=== PATIENT | female | born 1995 | race African-American/Black ===

== ENCOUNTER 2017-01-29 21:10 | Emergency (ER) | payer MEDICAID ==
[2017-01-29] MEDS ORDERED: HYDROMORPHONE HCL INJ/PF 2 MG/ML AMPULE IV PRN (22:16)
[2017-01-29] MEDS ORDERED: RINGERS SOLUTION,LACTATED 1,000 ML IV ONE (22:17)
[2017-01-29] MEDS ORDERED: PROCHLORPERAZINE EDISYLATE INJ 10 MG/2 ML VIAL IV ONE (22:58)
[2017-01-29] MEDS ORDERED: DIPHENHYDRAMINE HCL 50 MG/ML VIAL IV ONE (22:58)
[2017-01-29] MEDS ORDERED: KETOROLAC TROMETHAMINE INJ/PF 30 MG/1 ML SDV IV ONE (22:58)
--- NOTE | 2017-01-29 23:04 | ER Document Report ---
ED General - General Chief Complaint: Sickle Cell Crisis Stated Complaint: HEADACHE Time Seen by Provider: 01/29/17 22:15 Notes: Patient is a 21-year-old female past medical history of sickle cell type C who presents with a typical sickle cell crisis. She does describe diffuse body aches and pains which she states is standard for her sickle cell crises. She does not tried anything for her pain at home. Nothing has improved or worsened her symptoms. She does not have a local doctor slide attendant secondary to lack of medical insurance. She also complains of a bitemporal, throbbing, severe headache that has been gradual in onset and progressively worsening since it started. States lights, sounds, smells worsen the headache. Nothing improves the headache. States she has a history of similar migraine-type headaches in the past and that this is not worse than prior headaches she had in the past. She denies any associated weakness, numbness, neck pain, fever or confusion. Past Medical History - General Information source: Patient - Social History Smoking Status: Never Smoker Frequency of alcohol use: None Drug Abuse: None Lives with: Spouse/Significant other Family History: Reviewed & Not Pertinent Review of Systems - Review of Systems Notes: Constitutional: Negative for fever. HENT: Negative for sore throat. Eyes: Negative for visual changes. Cardiovascular: Negative for chest pain. Respiratory: Negative for shortness of breath. Gastrointestinal: Negative for abdominal pain, vomiting or diarrhea. Genitourinary: Negative for dysuria. Musculoskeletal: Negative for back pain. Skin: Negative for rash. Neurological: Positive for headaches, negative for weakness or numbness. 10 point ROS negative except as marked above and in HPI. Physical Exam - Vital signs Vitals: Resp Pulse Ox 20 97 01/29/17 20:57 01/29/17 20:57 Interpretation: Normal Notes: PHYSICAL EXAMINATION: GENERAL: Appears mildly uncomfortable but in no acute distress. HEAD: Atraumatic, normocephalic. EYES: Pupils equal round and reactive to light, extraocular movements intact, sclera anicteric, conjunctiva are normal. ENT: nares patent, oropharynx clear without exudates. Moist mucous membranes. NECK: Normal range of motion, supple without lymphadenopathy LUNGS: Breath sounds clear to auscultation bilaterally and equal. No wheezes rales or rhonchi. HEART: Regular rate and rhythm without murmurs ABDOMEN: Soft, nontender, normoactive bowel sounds. No guarding, no rebound. No masses appreciated. EXTREMITIES: Normal range of motion, no pitting or edema. No cyanosis. NEUROLOGICAL: Face symmetric. Tongue protrudes midline. Extraocular motions intact. Pupils are 2 mm and equally reactive. Normal speech, normal gait. 5 out of 5 strength in both the distal and proximal upper and lower extremities bilaterally. Sensation is grossly intact throughout. Finger to nose testing normal. Pronator drift normal. PSYCH: Normal mood, normal affect. SKIN: Warm, Dry, normal turgor, no rashes or lesions noted. Course - Re-evaluation Re-evalutation: 01/29/17 23:01 Presentation of a headache that appears to be most consistent with tension versus migrainous type headache. Headache was not maximal in onset, patient has no focal neurologic deficits, no nuchal rigidity, vital signs within normal limits, no papilledema, and patient is overall well in appearance. Based on clinical history and examination I do not suspect an acute subarachnoid hemorrhage, dural venous sinus thrombosis, acute meningitis, or intercranial mass. Although patient does have a history of sickle cell anemia and I recognize that she is at elevated risk for more complex pathologies if her headache, her clinical history is very consistent with a migraine-type headache. She states that was progressively worse in onset, she has a history of similar headaches in the past, that is been worsened by lights, smells, and loud sounds. She also is complaining of her typical sickle cell crisis pain. Patient has no evidence of an aplastic crisis on labs. Vitals and history are not consistent with acute chest syndrome. Vitals have remained within normal limits here in the emergency department. 01/30/17 00:34 Patient has a complete resolution of her headache at this time. Patient's pain has been able to be controlled using IV analgesia. The patient is agreeable to discharge home at this time. At this time will discharge with return precautions and follow-up recommendations. Verbal discharge instructions given a the bedside and opportunity for questions given. Medication warnings reviewed. Patient is in agreement with this plan and has verbalized understanding of return precautions and the need for primary care follow-up in the next 24-72 hours. - Vital Signs Vital signs: Temp Pulse Resp BP Pulse Ox 15 122/80 99 01/29/17 21:12 01/29/17 21:12 01/29/17 21:12 - Laboratory Result Diagrams: 01/29/17 22:37 01/29/17 22:37 Laboratory results interpreted by me: 01/29/17 01/29/17 22:37 22:37 WBC 18.0 H Hgb 10.7 L Hct 31.0 L MCV 72 L MCH 24.9 L RDW 15.7 H Band Neutrophils % 1 L Abs Neuts (Manual) 13.5 H Retic Count (auto) 3.91 H Absolute Retic 0.168 H Chloride 108 H Discharge - Discharge Clinical Impression: Sickle cell crisis Migraine headache Qualifiers: Migraine type: unspecified Status migrainosus presence: with status migrainosus Intractability: not intractable Qualified Code(s): G43.901 - Migraine, unspecified, not intractable, with status migrainosus Condition: Good Disposition: HOME, SELF-CARE Additional Instructions: You were seen today for sickle cell pain crisis. Please follow-up with your slide attendant. Returning to the ED if you have worsening pain, fever greater than 100.4, shortness of breath, persistent vomiting, or any other symptoms that are concerning to you. You were seen today for a migraine headache. Please follow-up with your primary care doctor regarding today's ED visit. Return to emergency department immediately if you develop a headache that gets to its maximum severity within 20 minutes of onset, you pass out, you develop weakness, numbness, changes in your vision, become unable to keep any fluids down for more than 12 hours, or develop a fever greater than 100.4 degrees Fahrenheit. If you develop a similar migraine headache in the future I recommend that you immediately take 600 mg of ibuprofen and 50 mg of Benadryl and go to sleep as quickly as possible. This can often prevent your migraine headache from becoming severe. Referrals: DICK MEJIA MD [ACTIVE STAFF] - Follow up as needed
[2017-01-29 23:09] LABS: HEMOGLOBIN 10.7 g/dL (12.0-15.5); HGB HCT DIFFERENCE 1.1; MEAN CORPUSCULAR HEMOGLOBIN 24.9 pg (27.0-33.4); MEAN CORPUSCULAR HGB CONC 34.5 g/dL (32.0-36.0); MEAN CORPUSCULAR VOLUME 72 fl (80-97); RED CELL DISTRIBUTION WIDTH 15.7 % (11.5-14.0)
[2017-01-29 23:18] LABS: ANION GAP 10 (5-19); BLOOD UREA NITROGEN 10 mg/dL (7-20); CALCIUM 9.1 mg/dL (8.4-10.2); CARBON DIOXIDE 24 mmol/L (22-30); CHLORIDE 108 mmol/L (98-107); CREATININE RESULT 0.68 mg/dL (0.52-1.25); GLUCOSE 94 mg/dL (75-110); POTASSIUM 4.3 mmol/L (3.6-5.0); SODIUM 141.6 mmol/L (137-145)
[2017-01-29 23:55] LABS: BAND NEUTROPHILS % (MANUAL) 1 % (3-5); BASOPHILS % (MANUAL) 1 % (0-2); EOSINOPHILS % (MANUAL) 2 % (0-6); LYMPHOCYTES % (MANUAL) 17 % (13-45); TOTAL CELLS COUNTED 100
[2017-01-29 23:58] LABS: HYPOCHROMASIA 1+; MICROCYTOSIS 1+; POLYCHROMASIA SLIGHT; TARGET CELLS 1+; TOXIC GRANULATION SLIGHT; TOXIC VACUOLATION PRESENT
[2017-01-29 23:59] LABS: ANISOCYTOSIS SLIGHT
[2017-01-30] MEDS ORDERED: HYDROCODONE/ACETAMINOPHEN 5-325 MG 6 TAB/DSPK PO PRN (00:33)
[2017-01-30 01:00] VITALS: BP 113/59
== END 2017-01-30 00:57 | disposition home or self-care (01) ==
LOC: ER 21:10
DX: D57.219 Sickle-cell/Hb-C disease with crisis, unspecified (principal); G43.901 Migraine, unspecified, not intractable, with status migrainosus
CPT/HCPCS: 99284; 96374; 96375; 36415; 85025; 85045; 80048; J1200; J1885; J1170; J0780; J7120

== ENCOUNTER 2017-01-30 21:47 | Emergency (ER) | payer MEDICAID ==
[2017-01-30 23:21] VITALS: BP 127/87
== END 2017-01-31 03:00 | disposition left against medical advice (07) ==
LOC: ER 21:47
DX: Z53.21 Procedure and treatment not carried out due to patient leaving prior to being seen by health care provider (principal)

== ENCOUNTER 2017-03-03 23:20 | Emergency (ER) | payer MEDICAID ==
[2017-03-03 23:38] VITALS: BP 154/99
== END 2017-03-04 00:05 | disposition left against medical advice (07) ==
LOC: ER 23:20
DX: Z53.21 Procedure and treatment not carried out due to patient leaving prior to being seen by health care provider (principal)

== ENCOUNTER 2017-03-07 16:30 | Emergency (ER) | payer MEDICAID ==
[2017-03-07] MEDS ORDERED: NORMAL SALINE 1000 ML 1,000 ML IV ONE (17:39)
[2017-03-07] MEDS ORDERED: MORPHINE SULFATE 10 MG/ML INJ IV ONE (17:40)
[2017-03-07] MEDS ORDERED: LORAZEPAM INJ 2 MG/1 ML VIAL IV ONE ×2 (17:40→21:35)
[2017-03-07] MEDS ORDERED: ONDANSETRON HCL INJ/PF 4 MG/2 ML SDV IV ONE (17:40)
--- NOTE | 2017-03-07 17:42 | ER Document Report ---
ED Medical Screen (RME) - General Chief Complaint: Breathing Difficulty Stated Complaint: DIFFICULTY BREATHING Time Seen by Provider: 03/07/17 17:39 Notes: Patient with a history of sickle cell disease who is here with chest pain and tightness and difficulty breathing. She had a pain crisis a couple of days ago and came to this emergency department, but we were too busy for her to wait to be seen. Patient says she has some slight cough. Not aware of any fever. Patient of Dr. Cline. TRAVEL OUTSIDE OF THE [place] IN LAST 30 DAYS: No Past Medical History - Social History Chew tobacco use (# tins/day): No Frequency of alcohol use: None Drug Abuse: None Renal/ Medical History: Denies: Hx Peritoneal Dialysis Physical Exam - Vital signs Vitals: Temp Pulse Resp BP Pulse Ox 98.3 F 83 20 149/94 H 100 03/07/17 16:55 03/07/17 16:55 03/07/17 16:55 03/07/17 16:55 03/07/17 16:55 Course - Vital Signs Vital signs: Temp Pulse Resp BP Pulse Ox 98.3 F 83 20 149/94 H 100 03/07/17 16:55 03/07/17 16:55 03/07/17 16:55 03/07/17 16:55 03/07/17 16:55
[2017-03-07 18:23] LABS: HEMATOCRIT 34.9 % (36.0-47.0); HEMOGLOBIN 11.7 g/dL (12.0-15.5); HGB HCT DIFFERENCE 0.2; MEAN CORPUSCULAR HEMOGLOBIN 24.4 pg (27.0-33.4); MEAN CORPUSCULAR HGB CONC 33.6 g/dL (32.0-36.0); MEAN CORPUSCULAR VOLUME 73 fl (80-97); RED BLOOD COUNT 4.81 10^6/uL (3.72-5.28); RED CELL DISTRIBUTION WIDTH 15.9 % (11.5-14.0); WHITE BLOOD COUNT 14.5 10^3/uL (4.0-10.5)
[2017-03-07 18:37] LABS: BASOPHILS % (MANUAL) 1 % (0-2); EOSINOPHILS % (MANUAL) 5 % (0-6); LYMPHOCYTES % (MANUAL) 15 % (13-45); NUCLEATED RED BLOOD CELLS 3 /100 WBC (0); TOTAL CELLS COUNTED 100
[2017-03-07 18:41] LABS: ANISOCYTOSIS 1+; MICROCYTOSIS 1+; PLATELET CLUMPS PRESENT; POIKILOCYTOSIS SLIGHT; POLYCHROMASIA SLIGHT; TARGET CELLS 3+
[2017-03-07 18:42] LABS: HYPOCHROMASIA SLIGHT
[2017-03-07] MEDS ORDERED: HYDROMORPHONE HCL INJ/PF 2 MG/ML AMPULE IV ONE (19:21)
[2017-03-07] MEDS ORDERED: NORMAL SALINE 1000 ML 1,000 ML IV PRN ×2 (19:21→21:34)
[2017-03-07] MEDS ORDERED: FOLIC ACID INJ 5 MG/1 ML 10 ML VIAL IV PRN ×2 (19:21→19:36)
[2017-03-07 19:22] LABS: ALANINE AMINOTRANSFERASE 37 U/L (9-52); ALKALINE PHOSPHATASE 115 U/L (38-126); ANION GAP 11 (5-19); ASPARTATE AMINO TRANSFERASE 27 U/L (14-36); BILIRUBIN,DIRECT 0.3 mg/dL (0.0-0.4); BILIRUBIN,TOTAL 0.8 mg/dL (0.2-1.3); BLOOD UREA NITROGEN 9 mg/dL (7-20); CALCIUM 9.2 mg/dL (8.4-10.2); CARBON DIOXIDE 24 mmol/L (22-30); CHLORIDE 104 mmol/L (98-107); CREATININE RESULT 0.66 mg/dL (0.52-1.25); GLUCOSE 90 mg/dL (75-110); POTASSIUM 4.3 mmol/L (3.6-5.0); SODIUM 138.7 mmol/L (137-145); TOTAL PROTEIN 7.4 g/dL (6.3-8.2)
--- NOTE | 2017-03-07 19:27 | ER Document Report ---
ED General - General Chief Complaint: Breathing Difficulty Stated Complaint: DIFFICULTY BREATHING Time Seen by Provider: 03/07/17 17:39 Mode of Arrival: Ambulatory Information source: Patient Notes: This is a 21-year-old female with a history of sickle cell disease who presents to the emergency room with body pain: Pain to the shoulders, legs, arms and back. Patient also says she has had some chest tightness. Patient states she did have a recent GI illness and was not drinking much fluids. She denies fever and chills. She denies any shortness of breath currently. TRAVEL OUTSIDE OF THE [place] IN LAST 30 DAYS: No - HPI Onset: Last week Onset/Duration: Gradual Quality of pain: Achy, Dull Severity: Moderate Pain Level: 3 Associated symptoms: denies: Chest pain, Fever, Shortness of breath Exacerbated by: Movement Relieved by: Denies Similar symptoms previously: Yes Recently seen / treated by doctor: Yes Past Medical History - General Information source: Patient - Social History Smoking Status: Current Some Day Smoker Cigarette use (# per day): No Chew tobacco use (# tins/day): No Frequency of alcohol use: None Drug Abuse: None Lives with: Family Family History: Reviewed & Not Pertinent Patient has suicidal ideation: No Patient has homicidal ideation: No - Medical History Medical History: Other - Sickle Cell Disease - Past Medical History Cardiac Medical History: Reports: None Pulmonary Medical History: Reports: None EENT Medical History: Reports: None Neurological Medical History: Reports: None Endocrine Medical History: Reports: None Renal/ Medical History: Reports: None. 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 Review of Systems - Review of Systems Constitutional: denies: Chills, Fever EENT: No symptoms reported Cardiovascular: No symptoms reported Respiratory: No symptoms reported Gastrointestinal: See HPI Genitourinary: No symptoms reported Female Genitourinary: No symptoms reported Musculoskeletal: No symptoms reported Skin: No symptoms reported Hematologic/Lymphatic: No symptoms reported Neurological/Psychological: No symptoms reported Physical Exam - Vital signs Vitals: Temp Pulse Resp BP Pulse Ox 98.3 F 83 20 149/94 H 100 03/07/17 16:55 03/07/17 16:55 03/07/17 16:55 03/07/17 16:55 03/07/17 16:55 Notes: Physical exam: GENERAL: 21-year-old female, alert and oriented 3, no acute distress. HEAD: Atraumatic, normocephalic. EYES: Pupils equal round and reactive to light, extraocular movements intact, sclera anicteric, conjunctiva are normal. ENT: TMs normal, nares patent, oropharynx clear without exudates. Moist mucous membranes. NECK: Normal range of motion, supple without lymphadenopathy or JVD. LUNGS: Breath sounds clear to auscultation bilaterally and equal. No wheezes rales or rhonchi. HEART: Regular rate and rhythm without murmurs, rubs or gallops. ABDOMEN: Soft, normoactive bowel sounds. No tenderness to palpation. No guarding, no rebound. No masses appreciated. EXTREMITIES: Normal range of motion, no pitting or edema. No clubbing or cyanosis. NEUROLOGICAL: Cranial nerves II through XII grossly intact. Normal speech, normal gait. PSYCH: Normal mood, normal affect. SKIN: Warm, Dry, normal turgor, no rashes or lesions noted. Course - Re-evaluation Re-evalutation: 03/08/17 00:04 : Patient is feeling better. She has gotten 3 L of fluid. She was having a lot of back spasms and got some benzodiazepine for that. Her musculoskeletal pain is improved. I do not see any evidence of infection another chest x-ray or her urine. Her oxygen saturations have been 99 -100% on room air. Her vital signs have been stable. She day off tomorrow and follow-up with Dr. Mejia Saturday. Discussed the case with Dr. Mejia who will be expecting her call on Saturday per - Vital Signs Vital signs: Temp Pulse Resp BP Pulse Ox 98.3 F 65 18 133/96 H 98 03/07/17 16:55 03/07/17 22:04 03/07/17 22:04 03/07/17 23:03 03/07/17 23:03 - Laboratory Result Diagrams: 03/07/17 17:55 03/07/17 18:58 Laboratory results interpreted by me: 03/07/17 17:55 WBC 14.5 H Hgb 11.7 L Hct 34.9 L MCV 73 L MCH 24.4 L RDW 15.9 H Plt Count 454 H Abs Neuts (Manual) 10.2 H Absolute Eos (Manual) 0.7 H Retic Count (auto) 3.87 H Absolute Retic 0.186 H - Diagnostic Test Radiology reviewed: Image reviewed Discharge - Discharge Clinical Impression: Sickle cell crisis Condition: Stable Disposition: HOME, SELF-CARE Instructions: Sickle Cell Crisis ([facility]) Additional Instructions: Recommendations: Rest, Drink plenty of fluids. Take the pain medicine as needed Take the Ativan for muscle spasms. Please note, the combination Of the pain medicine and the Ativan can make you increasingly lethargic. Try not to take them at the same time. Take a stool softener daily. Follow-up with Dr. Mejia on Saturday morning. To the ER for worsening pain The pain medicine you're taking prescribed as a narcotic. There are several important things you should know about this medicine: 1. Taking narcotics for too long can lead to physical and mental dependence. Take this medicine only if really needed and in the lowest quantity to achieve pain relief. 2. Do not drink alcohol while on this medicine. Alcohol interacts with narcotics and the combination can be dangerous. 3. Do not drive or operate machinery while on this medicine. 4. Narcotics do cause constipation, so drink plenty of fluids and daily stool softeners. Prescriptions: Docusate Sodium [Colace 100 mg Capsule] 100 mg PO DAILY #30 capsule Hydromorphone HCl [Dilaudid 2 Mg Tablet] 2 mg PO Q6H PRN #20 tablet PRN Reason: for pain Lorazepam [Ativan 1 mg Tablet] 1 tab PO TID #20 tablet Forms: Return to Work Referrals: DICK MEJIA MD [Primary Care Provider] - 03/11/17
--- NOTE | 2017-03-07 19:48 | RADIOLOGY REPORT (SQ) ---
EXAM DESCRIPTION: CHEST SINGLE VIEW COMPLETED DATE/TIME: 03/07/2017 7:37 pm REASON FOR STUDY: chest pain COMPARISON: None. EXAM PARAMETERS: NUMBER OF VIEWS: One view. TECHNIQUE: Single frontal radiographic view of the chest acquired. RADIATION DOSE: NA LIMITATIONS: Study is limited somewhat due to the patient's body habitus. FINDINGS: LUNGS AND PLEURA: No opacities, masses or pneumothorax. No pleural effusion. MEDIASTINUM AND HILAR STRUCTURES: No masses. Contour normal. HEART AND VASCULAR STRUCTURES: Heart normal in size. Normal vasculature. BONES: No acute findings. HARDWARE: None in the chest. OTHER: No other significant finding. IMPRESSION: NO ACUTE RADIOGRAPHIC FINDING IN THE CHEST. TECHNICAL DOCUMENTATION: JOB ID: [id number]
[2017-03-07] MEDS ORDERED: DIPHENHYDRAMINE HCL 50 MG/ML VIAL IV ONE (20:37)
[2017-03-07 21:04] LABS: APPEARANCE,URINE CLEAR; BILIRUBIN,URINE NEGATIVE (NEGATIVE); GLUCOSE, URINE NEGATIVE (NEGATIVE); KETONES,URINE NEGATIVE (NEGATIVE); LEUKOCYTE ESTERASE,URINE NEGATIVE (NEGATIVE); NITRITE,URINE NEGATIVE (NEGATIVE); PROTEIN,URINE NEGATIVE (NEGATIVE); UROBILINOGEN,URINE NEGATIVE mg/dL (<2.0)
[2017-03-07] MEDS ORDERED: KETOROLAC TROMETHAMINE INJ/PF 30 MG/1 ML SDV IV ONE (21:35)
[2017-03-07 23:58] VITALS: BP 133/96
== END 2017-03-07 23:59 | disposition home or self-care (01) ==
LOC: ER 16:30
DX: D57.00 Hb-SS disease with crisis, unspecified (principal); R07.89 Other chest pain; R25.2 Cramp and spasm; M54.9 Dorsalgia, unspecified; M25.519 Pain in unspecified shoulder; M79.606 Pain in leg, unspecified; F17.200 Nicotine dependence, unspecified, uncomplicated
CPT/HCPCS: 96376; 99285; 96361; 96374; 96375; 36415; 85025; 85045; 80053; 81001; 71010; J1200; J3490; J1885; J2270; J1170; J2060; J2405; J7030

== ENCOUNTER 2017-04-14 01:07 | Inpatient (IN) | payer MEDICAID ==
[2017-04-14] MEDS ORDERED: HYDROMORPHONE HCL INJ/PF 2 MG/ML AMPULE IV ONE ×2 (02:01→09:27)
[2017-04-14] MEDS ORDERED: NORMAL SALINE 1000 ML 1,000 ML IV ONE (02:02)
[2017-04-14] MEDS ORDERED: NORMAL SALINE 1000 ML 1,000 ML IV PRN (02:02)
[2017-04-14] MEDS ORDERED: ONDANSETRON HCL INJ/PF 4 MG/2 ML SDV IV ONE ×2 (02:03→16:41)
--- NOTE | 2017-04-14 02:09 | ER Document Report ---
ED General Pain - General Chief Complaint: Sickle Cell Crisis Stated Complaint: NAUSEA, VOMITING Time Seen by Provider: 04/14/17 01:53 Mode of Arrival: Medic Information source: Patient Notes: 21-year-old female presents to ED for sickle cell crisis, cough, congestion, nausea, and vomiting 1 she has not had a period in 2 months but she is on depo for control. TRAVEL OUTSIDE OF THE [place] IN LAST 30 DAYS: No - HPI Onset: Other - For a week Onset/Duration: Persistent Quality of pain: Sharp Severity: Moderate Pain Level: 4 Context: Chronic problem Typical of prior episodes of painful crisis: Yes Genotype: SC Associated symptoms: None Exacerbated by: Movement Relieved by: Denies Similar symptoms previously: Yes Recently seen / treated by doctor: Yes - Related Data Allergies/Adverse Reactions: tramadol Allergy (Verified 04/14/17 01:21) Past Medical History - General Information source: Patient - Social History Smoking Status: Former Smoker Cigarette use (# per day): No Chew tobacco use (# tins/day): No Smoking Education Provided: No Frequency of alcohol use: None Drug Abuse: None 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 denies: COPD, CVA, Thyroid Disfunction Patient has suicidal ideation: No Patient has homicidal ideation: No - Past Medical History Cardiac Medical History: Reports: None Pulmonary Medical History: Reports: None EENT Medical History: Reports: None Neurological Medical History: Reports: None Endocrine Medical History: Reports: None Renal/ Medical History: Reports: None Malignancy Medical History: Reports: None GI Medical History: Reports: None Musculoskeltal Medical History: Reports Other - Sickle cell anemia Skin Medical History: Reports None Psychiatric Medical History: Reports: None Traumatic Medical History: Reports: Hx Spleen Laceration/Rupture Infectious Medical History: Reports: None 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 - Immunizations Immunizations up to date: Yes Review of Systems - Review of Systems Constitutional: No symptoms reported EENT: Ear pain, Nose discharge Cardiovascular: No symptoms reported Respiratory: Cough Gastrointestinal: No symptoms reported Genitourinary: No symptoms reported Female Genitourinary: No symptoms reported Musculoskeletal: Back pain, Muscle pain, Muscle stiffness Skin: No symptoms reported Hematologic/Lymphatic: No symptoms reported Neurological/Psychological: No symptoms reported -: Yes All other systems reviewed and negative Physical Exam - Vital signs Vitals: Temp Pulse Resp BP Pulse Ox 98.4 F 94 18 131/87 H 99 04/14/17 01:18 04/14/17 01:18 04/14/17 01:18 04/14/17 01:18 04/14/17 01:18 Interpretation: Normal - General General appearance: Appears well, Alert - HEENT Head: Normocephalic, Atraumatic Eyes: Normal Pupils: PERRL Ears: Normal External canal: Normal Tympanic membrane: Normal Sinus: Normal Nasal: Purulent discharge, Swelling Mouth/Lips: Normal Mucous membranes: Normal Pharynx: Post nasal drainage Neck: Normal - Respiratory Respiratory status: No respiratory distress Chest status: Nontender Breath sounds: Normal Chest palpation: Normal - Cardiovascular Rhythm: Regular Heart sounds: Normal auscultation Murmur: No - Abdominal Inspection: Normal Distension: No distension Bowel sounds: Normal Tenderness: Nontender Organomegaly: No organomegaly - Back Back: Normal, Nontender - Extremities General upper extremity: Normal inspection, Nontender, Normal color, Normal ROM , Normal temperature General lower extremity: Normal inspection, Nontender, Normal color, Normal ROM , Normal temperature, Normal weight bearing. No: Suzie's sign - Neurological Neuro grossly intact: Yes Cognition: Normal Orientation: AAOx4 [place] Coma Scale Eye Opening: Spontaneous [place] Coma Scale Verbal: Oriented [place] Coma Scale Motor: Obeys Commands [place] Coma Scale Total: 15 Speech: Normal Motor strength normal: LUE, RUE, LLE, RLE Sensory: Normal - Psychological Associated symptoms: Normal affect, Normal mood - Skin Skin Temperature: Warm Skin Moisture: Dry Skin Color: Normal Course - Re-evaluation Re-evalutation: 04/14/17 06:21 Dr. Ridley was consulted at 6:00 for admission with WBC of 25,000 with segs of 69%. Chest x-ray is negative UA is negative patient is in for sickle cell anemia crisis. She has been given fluids O2 and Dilaudid for her pain. She was resting comfortably until I woke her to see how her pain was then she said the pain came back. Dr. Cline was consulted for antibiotic for her WBCs and she said that the Rocephin 1 g with good but that needed to be researched. Patient will be admitted to Dr. Ridley telemetry for sickle cell crisis. - Vital Signs Vital signs: Temp Pulse Resp BP Pulse Ox 98.4 F 94 18 136/117 H 99 04/14/17 01:18 04/14/17 01:18 04/14/17 01:18 04/14/17 05:01 04/14/17 05:01 - Laboratory Result Diagrams: 04/14/17 02:17 04/14/17 02:17 Laboratory results interpreted by me: 04/14/17 04/14/17 02:17 02:17 WBC 25.6 H Hgb 10.5 L Hct 30.8 L MCV 73 L MCH 24.7 L RDW 15.8 H Band Neutrophils % 2 L Abs Neuts (Manual) 18.2 H Abs Monocytes (Manual) 1.8 H Absolute Eos (Manual) 1.5 H Retic Count (auto) 4.21 H Absolute Retic 0.178 H Chloride 108 H AST 54 H ALT 92 H Alkaline Phosphatase 207 H - Diagnostic Test Radiology reviewed: Image reviewed, Reports reviewed Discharge - Discharge Clinical Impression: Sickle cell anemia with pain Disposition: ADMITTED INPATIENT Admitting Provider: Hospitalist - [facility] Unit Admitted: Telemetry
[2017-04-14 03:08] LABS: APPEARANCE,URINE CLEAR; BILIRUBIN,URINE NEGATIVE (NEGATIVE); GLUCOSE, URINE NEGATIVE (NEGATIVE); KETONES,URINE NEGATIVE (NEGATIVE); LEUKOCYTE ESTERASE,URINE NEGATIVE (NEGATIVE); NITRITE,URINE NEGATIVE (NEGATIVE); PROTEIN,URINE NEGATIVE (NEGATIVE); URINE SPECIFIC GRAVITY 1.006; UROBILINOGEN,URINE NEGATIVE mg/dL (<2.0)
[2017-04-14 03:18] LABS: ALANINE AMINOTRANSFERASE 92 U/L (9-52); ALBUMIN 3.5 g/dL (3.5-5.0); ALKALINE PHOSPHATASE 207 U/L (38-126); ANION GAP 9 (5-19); ASPARTATE AMINO TRANSFERASE 54 U/L (14-36); BILIRUBIN,DIRECT 0.3 mg/dL (0.0-0.4); BILIRUBIN,TOTAL 0.6 mg/dL (0.2-1.3); BLOOD UREA NITROGEN 8 mg/dL (7-20); CALCIUM 8.8 mg/dL (8.4-10.2); CARBON DIOXIDE 23 mmol/L (22-30); CHLORIDE 108 mmol/L (98-107); CREATININE RESULT 0.57 mg/dL (0.52-1.25); GLUCOSE 87 mg/dL (75-110); POTASSIUM 4.7 mmol/L (3.6-5.0); SODIUM 139.7 mmol/L (137-145); TOTAL PROTEIN 6.7 g/dL (6.3-8.2)
[2017-04-14 03:34] LABS: HEMATOCRIT 30.8 % (36.0-47.0); HEMOGLOBIN 10.5 g/dL (12.0-15.5); HGB HCT DIFFERENCE 0.7; MEAN CORPUSCULAR HEMOGLOBIN 24.7 pg (27.0-33.4); MEAN CORPUSCULAR VOLUME 73 fl (80-97); RED BLOOD COUNT 4.23 10^6/uL (3.72-5.28); RED CELL DISTRIBUTION WIDTH 15.8 % (11.5-14.0); WHITE BLOOD COUNT 25.6 10^3/uL (4.0-10.5)
--- NOTE | 2017-04-14 03:53 | RADIOLOGY REPORT (SQ) ---
EXAM DESCRIPTION: CHEST PA/LAT COMPLETED DATE/TIME: 04/14/2017 3:05 am REASON FOR STUDY: cough congestion back pain COMPARISON: 6.22.17 EXAM PARAMETERS: NUMBER OF VIEWS: two views TECHNIQUE: Digital Frontal and Lateral radiographic views of the chest acquired. RADIATION DOSE: NA LIMITATIONS: none FINDINGS: LUNGS AND PLEURA: Moderate lung volumes. MEDIASTINUM AND HILAR STRUCTURES: No masses or contour abnormalities. HEART AND VASCULAR STRUCTURES: Heart normal size. No evidence for failure. BONES: No acute findings. HARDWARE: Left upper abdominal clips. OTHER: No other significant finding. IMPRESSION: Moderate lung volumes. Otherwise no acute findings. TECHNICAL DOCUMENTATION: JOB ID: [id number] [employer]- All Rights Reserved
[2017-04-14 03:54] LABS: BAND NEUTROPHILS % (MANUAL) 2 % (3-5); BASOPHILS % (MANUAL) 0 % (0-2); EOSINOPHILS % (MANUAL) 6 % (0-6); LYMPHOCYTES % (MANUAL) 14 % (13-45); NUCLEATED RED BLOOD CELLS 4 /100 WBC (0); TOTAL CELLS COUNTED 100
[2017-04-14 03:56] LABS: ANISOCYTOSIS 1+; HYPOCHROMASIA SLIGHT; MICROCYTOSIS 1+; POIKILOCYTOSIS SLIGHT; POLYCHROMASIA 1+; TOXIC GRANULATION SLIGHT; TOXIC VACUOLATION PRESENT
[2017-04-14 03:57] LABS: TARGET CELLS 3+; TEAR DROP CELLS SLIGHT
[2017-04-14 03:58] LABS: PLATELET CLUMPS PRESENT
[2017-04-14] MEDS ORDERED: CEFTRIAXONE RTU 1 GM/D5W 50 ML IV ONE (06:14)
[2017-04-14] MEDS ORDERED: GUAIFENESIN SYRP 200 MG/10 ML UDC PO PRN (07:37)
[2017-04-14] MEDS ORDERED: ACETAMINOPHEN 325 MG TABLET PO PRN (07:45)
[2017-04-14] MEDS ORDERED: CEFOTAXIME INJ 1 GM VIAL IV SCH (07:45)
[2017-04-14] MEDS ORDERED: HYDROMORPHONE HCL 2 MG TABLET PO PRN (07:47)
[2017-04-14] MEDS ORDERED: PROMETHAZINE HCL 25 MG TABLET PO PRN (08:04)
--- NOTE | 2017-04-14 08:07 | PDOC H&P ---
History of Present Illness Admission Date/PCP: 04/14/17 06:16 Dr. Kumar Patient complains of: Sickle cell crisis, cough, painful swallowing History of Present Illness: SWETA VIZCAINO is a 21 year old obese -[place] female, with underlying sickle cell disease,, along with partial hearing loss, who presents to the emergency room for evaluation of above complaints. Patient has been discussed with emergency room nurse practitioner who evaluated the patient. She describes a 2 day history of cramping and sharp initial back and abdominal pain, which eventually migrated into her arms and legs. She states this is the usual pattern for her sickle cell crises. She has had nausea and several episodes of vomiting. Temperature 102.0 2 days ago. No diarrhea or dysuria. She describes a 10 day history of intermittent somewhat congested cough. Multiple family members and friends with similar complaints, including her young son. Also describes a 2-3 day history of painful swallowing, pointing to the back of her throat. Dictation via voice recognition software. Laboratory results are listed in [facility] and are reviewed. X-ray summary results are listed below, with full report(s) reviewed. . Social history/personal habits: Single. Has children. 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 Occasional cigarette. No alcohol or illicit drug use. Allergies/adverse reactions are listed in [facility] and are reviewed. Home medications none REVIEW OF SYSTEMS: Constitutional: See history and present illness. Eyes: No vision complaints. ENT: See history and present illness. Partial hearing loss. Pulmonary: No current complaints. Cardiovascular: No current complaints, including chest pain. Gastrointestinal: See history and present illness. Skin: No current complaints, including rashes. Hematologic: Denies easy bruising. See history and present illness. Neurologic: No current complaints, including numbness or tingling. Musculoskeletal: See history and present illness. Psychiatric: Denies anxiety or depression. Endocrine: No current complaints, including polyuria. Genitourinary: No current complaints, including dysuria. PHYSICAL EXAMINATION: 4 feet 11 inches tall. 104.3 kg. BMI 46.5 kg/m. Blood pressure 136/96. 100% saturation on room air. Respirations are 24 and unlabored. Temperature 98.6. Pulse 102 and regular. Morbidly obese otherwise well-developed young -B[place] female, who appears not to feel very well. A bit fatigued. Otherwise, awake alert pleasant and cooperative. Emergency room nurse dental service technician Rene is initially present; subsequently her female floor nurse is present. Skin is warm and dry. No grossly obvious evidence of rash in areas of skin examined. No subcutaneous nodules palpated. ENT: Hearing grossly normal to normal conversation. Tongue midline on protrusion pink and slightly tacky. Mild inflammation of the posterior pharynx , without exudate or ulceration, and with minimal soft tissue swelling. Eyes: No scleral icterus. Pupils equal and reactive to light at 4 mm. [place] conjunctivae. Neck is supple and nontender to gentle active range of motion and palpation. Midline trachea. No palpable thyroid nodule mass enlargement or tenderness. Lymphatic: No palpable cervical or clavicular nodes. Neck and lymphatic exams limited by patient body habitus. Psychiatric: Reasonable insight into acute and chronic medical issues. Oriented to time location and why here. Lungs: Auscultation reveals clear and equal breath sounds bilaterally. No use of accessory respiratory muscles. Cardiovascular: Heart regular rate and rhythm, without gallop murmur or rub. No carotid or abdominal aortic bruits. No ankle or pedal edema. Palpable dorsalis pedis pulses. Abdomen:soft obese with positive bowel sounds. Unable to adequately evaluate abdomen for masses or organomegaly due to body habitus . Scant discomfort to palpation of the abdomen. Certainly no evidence of guarding or peritoneal signs. Extremities: Feet are warm and dry. No calf tenderness to compression. No grossly obvious visual evidence of calf swelling. Gentle manipulation of lower extremities fails to reveal any obvious evidence of injury or instability to knees hips or ankles. Neurologic: Moves upper extremities grossly normally. Patellar reflexes absent. Absent Babinski. Light touch is intact at feet. Dorsiflexion and plantarflexion of feet 5 / 5 and symmetric. Past Medical History Cardiac Medical History: Denies: Atrial Fibrillation, Congestive Heart Failure, DVT, Myocardial Infarction, Hyperlipidema, Hypertension, Pulmonary Embolism Pulmonary Medical History: Denies: Asthma, Chronic Obstructive Pulmonary Disease (COPD) EENT Medical History: Reports: Ears - Partial hearing loss Denies: Eyes, Throat Neurological Medical History: Denies: Hemorrhagic CVA, Ischemic CVA, Seizures Endocrine Medical History: Denies: Diabetes Mellitus Type 1, Diabetes Mellitus Type 2, Hyperthyroidism, Hypothyroidism Renal/ Medical History: Reports: None GI Medical History: Denies: Cirrhosis, Gastroesophageal Reflux Disease, Hepatitis, Peptic Ulcer Disease Musculoskeltal Medical History: Denies: Arthritis Skin Medical History: Reports: None Psychiatric Medical History: Denies: Alcohol Dependency, Depression, General Anxiety Disorder, Substance Abuse, Tobacco Dependency Hematology: Reports: Sickle Cell Disease Infectious Medical History: Denies: Hepatitis B, Hepatitis C Past Surgical History 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 Father alive , uncertain health status. Children Family History Reviewed: Yes - Healthy Sibling(s) Family History Reviewed.: Yes - Healthy Medication/Allergy Home Medications: No Home Medications 04/14/17 Allergies/Adverse Reactions: tramadol Adverse Reaction (Verified 04/14/17 07:46) palpitations Physical Exam Vital Signs: Temp Pulse Resp BP Pulse Ox 98.1 F 88 18 138/74 H 98 04/14/17 07:13 04/14/17 07:13 04/14/17 07:13 04/14/17 07:13 04/14/17 07:13 Intake & Output 04/13/17 04/14/17 04/15/17 00:59 00:59 00:59 Weight 104.326 kg Results Impressions: Chest X-Ray 04/14/17 02:03 IMPRESSION: Moderate lung volumes. Otherwise no acute findings. Assessment & Plan - Diagnosis (1) Cough Is this a current diagnosis for this admission?: Yes (2) Leukocytosis Qualifiers: Leukocytosis type: unspecified Qualified Code(s): D72.829 - Elevated white blood cell count, unspecified Is this a current diagnosis for this admission?: YesPlan: Likely simply a stress response to her sickle cell crisis, but given her cough, and recent fever, will proceed with antibiotics, consisting of Zithromax and cefotaxime. Incentive spirometry twice a day. As needed duo nebs. Sputum culture. Patient is a full code. I have strongly encouraged patient not to get out of bed without notifying staff , to avoid a fall with injury. Knee high SCDs for DVT prophylaxis, along with subcutaneous Lovenox. Impression and plans were discussed with patient who concurs. Time spent in evaluation and management of patient: 67 minutes. (3) Odynophagia Is this a current diagnosis for this admission?: YesPlan: Doubt strep throat, but given patient's complaints, along with leukocytosis, will proceed with rapid strep. (4) Sickle cell crisis Is this a current diagnosis for this admission?: YesPlan: IV fluids. Supplemental oxygen. As needed pain medication. Hematology consult; Dr. Kumar aware patient has been admitted, and agrees with addition of antibiotics. - Time Time Spent: 50 to 70 Minutes Medications reviewed and adjusted accordingly: Yes Anticipated discharge: Home Within: within 72 hours - Inpatient Certification Based on my medical assessment, after consideration of the patient's comorbidities, presenting symptoms, or acuity I expect that the services needed warrant INPATIENT care.: Yes I certify that my determination is in accordance with my understanding of Medicare's requirements for reasonable and necessary INPATIENT services [42 CFR 412.3e].: Yes Medical Necessity: Need Close Monitoring Due to Risk of Patient Decompensation, Need For IV Fluids, Need for IV Antibiotics, Risk of Complication if Not Cared For in Hospital Post Hospital Care: D/C or Transfer Summary
[2017-04-14] MEDS ORDERED: AZITHROMYCIN 250 MG TABLET PO SCH (09:00)
[2017-04-14] MEDS ORDERED: ONDANSETRON 4 MG TAB.RAPDIS PO PRN (09:27)
[2017-04-14] MEDS: 1/2 NORMAL SALINE 1,000 ML IV PRN (09:33)
[2017-04-14] MEDS ORDERED: ALBUTEROL SULFATE 0.083% NEB 2.5 MG/3 ML AMPUL NEB PRN (09:34)
[2017-04-14] MEDS ORDERED: BENZONATATE 100 MG CAPSULE PO PRN (09:35)
[2017-04-14] MEDS: ENOXAPARIN SODIUM INJ 40 MG/0.4 ML DISP.SYRIN SUBCUT SCH (09:42)
--- NOTE | 2017-04-14 09:58 | PROGRESS NOTE E ---
Progress Note NAME: SWETA VIZCAINO : 1995 AGE: 21Y DATE: 04/14/2017 ROOM: 531 SUBJECTIVE: The patient is lying in bed. She states that she feels absolutely horrible. She complains of pain in her legs and back. She is also congested and complains of ear pain. The patient is oxygenating well though on room air. I have encouraged her to wear nasal cannula. Patient denies any nausea, vomiting, diarrhea. No shortness of breath, dizziness, chest pain. No fevers, chills. Patient has been afebrile. Blood pressures have been in a good range. The patient does not voice any other concerns at this time. REVIEW OF SYSTEMS: Rest of review of systems negative. MEDICATIONS: Medications have been reviewed. OBJECTIVE: GENERAL: The patient is a 21-year-old -[place] female who is awake, alert, and oriented to person, place, time, and situation. She is verbal, conversational, does not appear to be in acute distress. VITAL SIGNS: Temperature is 98.7, pulse 87, respirations 12, blood pressure is 131/76, oxygen saturation is 100% on room air. SKIN: Warm and dry. No rash. She is not diaphoretic. HEENT: Pupils equal, round, and reactive to light and accommodation. Conjunctivae pink. No JVP. CARDIOVASCULAR SYSTEM: Heart is regular. There is no murmur or rub. CHEST: Diminished, symmetrical, unlabored. ABDOMEN: Soft, nontender, nondistended. BACK: No CVA tenderness or sacral edema. EXTREMITIES: No clubbing, cyanosis. No edema. PSYCHIATRIC: Appropriate affect, pleasant mood. DIAGNOSTICS: Lab values are as follows: Hematology obtained on 04/14/2017: WBC 25.6, hemoglobin is 12.5, hematocrit is 24.8, platelet count is 425,000. Chemistry obtained on 04/14/2017: Sodium is 139, potassium 4.7, chloride is 108, carbon dioxide 23, BUN 8, creatinine is 0.57, glucose 87. Lactic acid is 0.8. Calcium is 8.8, bilirubin is 0.6, AST 54, ALT is 92, alkaline phosphatase 207, total protein 6.7, albumin 3.5. IMPRESSION AND PLAN: 1. ACUTE SINUSITIS AND BRONCHITIS. Will transition to doxycycline. Will also add Flonase, Singulair, Mucinex and nebulizers and follow. 2. SEPSIS SECONDARY TO THE ABOVE. Will repeat white count in the a.m. The patient is afebrile at this time. Will monitor the patient closely. Will add continuous pulse oximetry. 3. SICKLE CELL DISEASE WITH CRISIS. The patient's hemoglobin overall was stable, however, the patient is in a significant amount of pain. Will add Dilaudid for pain management and if the patient's oxygen saturations should drop will CT to follow for chest crisis. 4. DVT PROPHYLAXIS. Will continue subcu Lovenox. DISPOSITION: The patient is a FULL CODE. Pending patient's symptomatology and diagnostic findings, we will re-evaluate as needed. TIME SPENT: Time spent on this followup including assessment, plan, physical examination, patient education and review of previous records was 35 minutes. DICTATING PHYSICIAN: EVA HARRIS NP [id number] PHY#: [id number] ID: [id number] JOB#: [id number] ACCT: [id number] cc: > MTDD
[2017-04-14] MEDS ORDERED: FLUTICASONE NASAL SPRAY 50 MCG/SPRY 120 SPRAY/16 GM NASL ONE (11:30)
[2017-04-14] MEDS: GUAIFENESIN 600 MG TABLET.SA PO SCH ×2 (11:32→21:50)
[2017-04-14] MEDS: LORATADINE 10 MG TABLET PO SCH (11:32)
[2017-04-14] MEDS: DOXYCYCLINE HYCLATE 100 MG in DEXTROSE 5%-WATER 250 ML IV SCH ×2 (11:33→22:00)
[2017-04-14] MEDS: HYDROMORPHONE HCL INJ/PF 2 MG/ML AMPULE IV PRN ×2 (15:59→21:50)
[2017-04-14] MEDS ORDERED: ONDANSETRON HCL INJ/PF 4 MG/2 ML SDV IV PRN (16:41)
[2017-04-14] MEDS: MONTELUKAST SODIUM 10 MG TABLET PO SCH (21:50)
[2017-04-14] MEDS: FLUTICASONE NASAL SPRAY 50 MCG/SPRY 120 SPRAY/16 GM NASL SCH (21:51)
[2017-04-14] MEDS: PROMETHAZINE HCL 25 MG TABLET PO PRN (23:37)
[2017-04-15] MEDS: HYDROMORPHONE HCL INJ/PF 2 MG/ML AMPULE IV PRN ×3 (04:56→19:27)
[2017-04-15 05:30] LABS: HEMATOCRIT 31.6 % (36.0-47.0); HGB HCT DIFFERENCE 1.4; MEAN CORPUSCULAR HGB CONC 34.8 g/dL (32.0-36.0); MEAN CORPUSCULAR VOLUME 72 fl (80-97); RED CELL DISTRIBUTION WIDTH 15.9 % (11.5-14.0); WHITE BLOOD COUNT 20.8 10^3/uL (4.0-10.5)
[2017-04-15 05:50] LABS: ALANINE AMINOTRANSFERASE 71 U/L (9-52); ALBUMIN 3.7 g/dL (3.5-5.0); ALKALINE PHOSPHATASE 159 U/L (38-126); ANION GAP 11 (5-19); ASPARTATE AMINO TRANSFERASE 32 U/L (14-36); BILIRUBIN,DIRECT 0.4 mg/dL (0.0-0.4); BILIRUBIN,TOTAL 0.8 mg/dL (0.2-1.3); BLOOD UREA NITROGEN 5 mg/dL (7-20); CALCIUM 9.3 mg/dL (8.4-10.2); CARBON DIOXIDE 24 mmol/L (22-30); CHLORIDE 102 mmol/L (98-107); CREATININE RESULT 0.59 mg/dL (0.52-1.25); GLUCOSE 79 mg/dL (75-110); POTASSIUM 4.5 mmol/L (3.6-5.0); SODIUM 136.5 mmol/L (137-145)
[2017-04-15 06:22] LABS: BASOPHILS % (MANUAL) 0 % (0-2); EOSINOPHILS % (MANUAL) 4 % (0-6); LYMPHOCYTES % (MANUAL) 12 % (13-45); NUCLEATED RED BLOOD CELLS 5 /100 WBC (0); TOTAL CELLS COUNTED 100
[2017-04-15 06:26] LABS: ANISOCYTOSIS 1+; HYPOCHROMASIA SLIGHT; MICROCYTOSIS 1+; PLATELET CLUMPS PRESENT; POLYCHROMASIA 1+; TARGET CELLS 3+; TOXIC GRANULATION SLIGHT; TOXIC VACUOLATION PRESENT
[2017-04-15] MEDS: 1/2 NORMAL SALINE 1,000 ML IV PRN ×2 (06:37→14:30)
[2017-04-15] MEDS: PROMETHAZINE HCL 25 MG TABLET PO PRN (06:37)
[2017-04-15] MEDS ORDERED: ACETAMINOPHEN 325 MG TABLET PO PRN (08:44)
--- NOTE | 2017-04-15 10:43 | PROGRESS NOTE E ---
Progress Note NAME: SWETA VIZCAINO : 1995 AGE: 21Y DATE: 04/15/2017 ROOM: 531 SUBJECTIVE: The patient is lying in bed. She states she feels better than she did yesterday but still has a sore throat, strong cough, and pain that she feels is reasonably well controlled. The patient denies any nausea, vomiting, or diarrhea. No dizziness. No shortness of breath. Patient has been afebrile. Blood pressure has been in a good range. Patient does not voice any other concerns at this time. REVIEW OF SYSTEMS: Rest of the review of systems negative. MEDICATIONS: Have been reviewed. OBJECTIVE: GENERAL: The patient is a 21-year-old -Citizen Of [place] female who is awake, alert, and oriented to person, place, time, and situation. She is verbal, conversational, and does not appear to be in any acute distress. VITAL SIGNS: Temperature 98.5, pulse 83, respirations 16, blood pressure is 115/71, oxygen saturation is 100% on room air. SKIN: Warm and dry. No rash. Not diaphoretic. HEENT: Pupils equal, round, reactive to light and accommodation. Conjunctivae are pink. There is no JVP. CARDIOVASCULAR: Heart is regular. There is no murmur or rub. CHEST: Clear, symmetrical, unlabored but overall diminished. ABDOMEN: Soft, obese. No area of focal tenderness. EXTREMITIES: No clubbing, cyanosis, or edema. PSYCHIATRIC: Appropriate affect. Pleasant mood. DIAGNOSTICS: Lab values are as follow: Hematology obtained on 04/15/2017: WBCs are 20.8, hemoglobin is 11.0, hematocrit is 31.3, platelet count is 444,000. Chemistry obtained on 04/15/2017: Sodium is 136, potassium 4.5, chloride is 102, carbon dioxide 24, BUN 5, creatinine is 0.59, glucose 79, calcium is 9.3, total bilirubin is 0.8, AST 32, ALT is 51, alk phos 159, total protein 7.0, albumin 3.7. IMPRESSION AND PLAN: 1. ACUTE SINUSITIS AND BRONCHITIS. The patient has tolerated transition to doxycycline. White count is a little better. The patient also does not feel nearly as congested. Continue Flonase, Singulair, Mucinex and nebulizers. Follow. 2. SEPSIS SECONDARY TO THE ABOVE. Repeat white overall is much improved. She is no longer tachycardiac. She is afebrile. Will continue continuous pulse oximetry for now. 3. SICKLE CELL DISEASE WITH CRISIS. The patient's hemoglobin overall is stable. She has had a significant amount of pain which has improved with Dilaudid. Do appreciate Hematology's input with this. 4. DVT PROPHYLAXIS. Will continue subcutaneous Lovenox. DISPOSITION: The patient is a FULL CODE. Pending patient's symptomatology and diagnostic findings, will reevaluate in the a.m. Time spent on this followup including assessment, plan, physical examination, patient education, and review of records is 25 minutes. DICTATING PHYSICIAN: EVA HARRIS NP [id number] PHY#: [id number] ID: [id number] JOB#: [id number] ACCT: [id number] cc: >
[2017-04-15] MEDS: DOXYCYCLINE HYCLATE 100 MG in DEXTROSE 5%-WATER 250 ML IV SCH ×2 (11:02→22:13)
[2017-04-15] MEDS: LORATADINE 10 MG TABLET PO SCH (11:03)
[2017-04-15] MEDS: GUAIFENESIN 600 MG TABLET.SA PO SCH ×2 (11:03→21:15)
[2017-04-15] MEDS: FLUTICASONE NASAL SPRAY 50 MCG/SPRY 120 SPRAY/16 GM NASL SCH ×2 (11:04→21:15)
[2017-04-15] MEDS: ENOXAPARIN SODIUM INJ 40 MG/0.4 ML DISP.SYRIN SUBCUT SCH (11:04)
[2017-04-15] MEDS: MONTELUKAST SODIUM 10 MG TABLET PO SCH (21:16)
[2017-04-16] MEDS: HYDROMORPHONE HCL INJ/PF 2 MG/ML AMPULE IV PRN ×4 (03:21→22:37)
[2017-04-16] MEDS: FLUTICASONE NASAL SPRAY 50 MCG/SPRY 120 SPRAY/16 GM NASL SCH ×2 (09:40→22:05)
[2017-04-16] MEDS: GUAIFENESIN 600 MG TABLET.SA PO SCH ×2 (09:40→22:05)
[2017-04-16] MEDS: LORATADINE 10 MG TABLET PO SCH (09:40)
[2017-04-16] MEDS: ENOXAPARIN SODIUM INJ 40 MG/0.4 ML DISP.SYRIN SUBCUT SCH (09:41)
[2017-04-16] MEDS: DOXYCYCLINE HYCLATE 100 MG in DEXTROSE 5%-WATER 250 ML IV SCH ×2 (10:42→22:05)
--- NOTE | 2017-04-16 11:23 | PROGRESS NOTE E ---
Progress Note NAME: SWETA VIZCAINO : 1995 AGE: 21Y DATE: 04/16/2017 ROOM: 531 SUBJECTIVE: The patient is currently lying in bed. She states she feels better today. Still has back pain. States that her sinus congestion has improved but does admit to strong cough. She denies any nausea, vomiting, or diarrhea. No shortness of breath, dizziness, chest pain. No fevers, chills. Patient has been afebrile. Blood pressure has been in a good range. Patient does not voice any other concerns at this time. REVIEW OF SYSTEMS: Rest of the review of systems negative. MEDICATIONS: Have been reviewed. OBJECTIVE: GENERAL: The patient is a 21-year-old -[place] female who is awake, alert, and oriented to person, place, time, and situation. She is verbal, conversational; does not appear to be in acute distress. VITAL SIGNS: As follows: Temperature 98.6, pulse 85, respirations 16, blood pressure 125/79. Oxygen saturation is 99% on room air. SKIN: Warm and dry. No rash. Not diaphoretic. HEENT: Pupils equal, round, reactive to light and accommodation. Conjunctivae are pink. No JVP. CARDIOVASCULAR: Heart is regular. There is no murmur or rub. CHEST: Clear, symmetrical, unlabored. ABDOMEN: Soft, obese. Nontender. BACK: No CVA tenderness, sacral edema. EXTREMITIES: No clubbing, cyanosis, or edema. PSYCHIATRIC: Appropriate affect. Pleasant mood. DIAGNOSTICS: Lab values are as follows: Hematology obtained on 04/15/2017: WBCs are 20.8, hemoglobin is 11.0, hematocrit is 31.6, platelet count is 444,000. Chemistry obtained on 04/15/2017: Sodium is 136, potassium 4.5, chloride is 102, carbon dioxide 24, BUN 5, creatinine is 0.59, glucose 79, calcium is 9.3. Microbiology: Throat culture is negative. Blood cultures are negative. IMPRESSION AND PLAN: 1. ACUTE SINUSITIS AND BRONCHITIS. The patient is tolerating doxycycline. She is feeling better; will continue Flonase, Singulair, Mucinex and nebulizer. Follow. 2. SEPSIS, SECONDARY TO THE ABOVE. Patient's white count improved. She is no longer tachycardiac. She is afebrile. Will continue continuous pulse oximetry for now. 3. SICKLE CELL DISEASE WITH CRISIS. Hemoglobin overall has been stable. The patient has had a significant amount of pain but has responded well to Dilaudid; she states it is much improved. Do appreciate Hematology's input with this. 4. DVT PROPHYLAXIS. Will continue subcu Lovenox. DISPOSITION: The patient is a FULL CODE. Pending patient's symptomatology and diagnostic findings, will reevaluate in the a.m. TIME SPENT ON THIS FOLLOWUP: Including assessment, plan, physical examination, patient education, and family meeting is 25 minutes. DICTATING PHYSICIAN: EVA HARRIS NP [id number] PHY#: [id number] ID: [id number] JOB#: [id number] ACCT: [id number] cc: >
[2017-04-16] MEDS: MONTELUKAST SODIUM 10 MG TABLET PO SCH (22:05)
[2017-04-17] MEDS: HYDROMORPHONE HCL INJ/PF 2 MG/ML AMPULE IV PRN ×3 (05:04→18:45)
--- NOTE | 2017-04-17 08:18 | PROGRESS NOTE E ---
Progress Note NAME: SWETA VIZCAINO : 1995 AGE: 21Y DATE: 04/17/2017 ROOM: 531 SUBJECTIVE: The patient is currently lying in bed. She states that she feels drained, but overall feels improved in comparison to yesterday. The patient's labs from this morning are still pending. The patient denies any nausea, vomiting, diarrhea. No shortness of breath, dizziness, chest pain. Mainly complains of back pain. No fevers, chills. The patient has been afebrile. Blood pressure has been in a good range. The patient does not voice any other concerns at this time. REVIEW OF SYSTEMS: Rest of review of systems negative. MEDICATIONS: Medications have been reviewed. OBJECTIVE: GENERAL: The patient is a 21-year-old -[place] female who is awake, alert, and oriented to person, place, time, and situation. She is verbal, conversational, does not appear to be in acute distress. VITAL SIGNS: Temperature is 98.2, pulse 81, respirations 18, blood pressure is 125/70, oxygen saturation is 99% on room air. SKIN: Warm and dry. No rash. She is not diaphoretic. HEENT: Pupils equal, round, and reactive to light and accommodation. Conjunctiva pink. No JVP. CARDIOVASCULAR SYSTEM: Heart is regular. There is no murmur or rub. CHEST: Clear, symmetrical, unlabored. ABDOMEN: Soft, nontender, nondistended. BACK: No CVA tenderness or sacral edema. EXTREMITIES: No clubbing, cyanosis, edema. PSYCHIATRIC: Appropriate affect, pleasant mood. DIAGNOSTICS: Lab values are as follows: Hematology obtained on 04/15/2017: WBCs are 10.8, hemoglobin is 11.0, hematocrit is 31.6, platelet count is 444,000. Chemistry obtained on 04/15/2017: Sodium is 136, potassium is 4.5, chloride is 102, carbon dioxide 24, BUN 5, creatinine is 0.59, glucose 79, calcium is 9.3. IMPRESSION AND PLAN: 1. ACUTE SINUSITIS AND BRONCHITIS. The patient is tolerating doxycycline. She is now feeling better. Continue Flonase, Singulair, Mucinex, and nebulizers, follow. 2. SEPSIS SECONDARY TO THE ABOVE. The patient's white count is improved. No longer tachycardic. She is afebrile. Will continue pulse oximetry. 3. SICKLE CELL DISEASE WITH CRISIS. Hemoglobin overall has been stable. The patient has had significant amount of pain, but has responded well to Dilaudid. Overall, she feels much improved. Do appreciate Hematology's input on this. 4. DVT PROPHYLAXIS. Will continue subcu Lovenox. DISPOSITION: The patient is a FULL CODE. Pending patient's symptomatology and diagnostic findings, will re-evaluate in the a.m. Will follow up the patient's labs that are currently pending. Time spent on this followup including assessment, plan, physical examination, patient education is 20 minutes. DICTATING PHYSICIAN: EVA HARRIS NP [id number] PHY#: [id number] ID: [id number] JOB#: [id number] ACCT: [id number] cc: >
[2017-04-17 10:02] LABS: HEMATOCRIT 30.8 % (36.0-47.0); HEMOGLOBIN 10.7 g/dL (12.0-15.5); HGB HCT DIFFERENCE 1.3; MEAN CORPUSCULAR HGB CONC 34.7 g/dL (32.0-36.0); MEAN CORPUSCULAR VOLUME 72 fl (80-97); RED BLOOD COUNT 4.28 10^6/uL (3.72-5.28); RED CELL DISTRIBUTION WIDTH 15.8 % (11.5-14.0); WHITE BLOOD COUNT 18.9 10^3/uL (4.0-10.5)
[2017-04-17] MEDS: DOXYCYCLINE HYCLATE 100 MG in DEXTROSE 5%-WATER 250 ML IV SCH ×2 (10:12→22:20)
[2017-04-17] MEDS: LORATADINE 10 MG TABLET PO SCH (10:13)
[2017-04-17] MEDS: FLUTICASONE NASAL SPRAY 50 MCG/SPRY 120 SPRAY/16 GM NASL SCH ×2 (10:13→22:20)
[2017-04-17] MEDS: GUAIFENESIN 600 MG TABLET.SA PO SCH ×2 (10:13→22:20)
[2017-04-17] MEDS: ENOXAPARIN SODIUM INJ 40 MG/0.4 ML DISP.SYRIN SUBCUT SCH (10:14)
[2017-04-17 10:17] LABS: ANION GAP 12 (5-19); BLOOD UREA NITROGEN 8 mg/dL (7-20); CALCIUM 9.4 mg/dL (8.4-10.2); CARBON DIOXIDE 24 mmol/L (22-30); CHLORIDE 103 mmol/L (98-107); CREATININE RESULT 0.53 mg/dL (0.52-1.25); GLUCOSE 107 mg/dL (75-110); POTASSIUM 4.1 mmol/L (3.6-5.0); SODIUM 138.5 mmol/L (137-145)
[2017-04-17 10:26] LABS: BAND NEUTROPHILS % (MANUAL) 3 % (3-5); BASOPHILS % (MANUAL) 0 % (0-2); EOSINOPHILS % (MANUAL) 6 % (0-6); LYMPHOCYTES % (MANUAL) 25 % (13-45); TOTAL CELLS COUNTED 100
[2017-04-17 10:27] LABS: TARGET CELLS 3+
[2017-04-17 10:28] LABS: ANISOCYTOSIS SLIGHT; HYPOCHROMASIA 2+; MICROCYTOSIS SLIGHT; POIKILOCYTOSIS 1+; SCHISTOCYTES 1+; TOXIC GRANULATION 1+
[2017-04-17] MEDS: MONTELUKAST SODIUM 10 MG TABLET PO SCH (22:20)
[2017-04-18] MEDS: HYDROMORPHONE HCL INJ/PF 2 MG/ML AMPULE IV PRN ×3 (01:01→15:26)
[2017-04-18] MEDS ORDERED: HYDROMORPHONE HCL INJ/PF 2 MG/ML AMPULE IV ONE (07:42)
[2017-04-18] MEDS ORDERED: METHYLPREDNISOLONE INJ 40 MG/1 ML SDV IV ONE (07:45)
--- NOTE | 2017-04-18 08:13 | PROGRESS NOTE E ---
Progress Note NAME: SWETA VIZCAINO : 1995 AGE: 21Y DATE: 04/18/2017 ROOM: 529 SUBJECTIVE: The patient is currently lying in bed. She states that she is having worsening back pain, but her breathing symptoms overall have improved. The patient denies any nausea, vomiting, diarrhea. No shortness of breath, dizziness, chest pain. No fevers, chills. The patient has been afebrile. Her blood pressures have been in a good range, and the patient does not voice any concerns at this time. REVIEW OF SYSTEMS: Rest of review of systems is negative. MEDICATIONS: Medications have been reviewed. OBJECTIVE: GENERAL: The patient is a 21-year-old -[place] female who is awake, alert, and oriented to person, place, time, and situation. She is verbal, conversational, does not appear to be in any acute distress. VITAL SIGNS: Temperature is 98.2, pulse 80, respirations 16, blood pressure is 113/68, oxygen saturation 98% on room air. SKIN: Warm and dry. No rash. Not diaphoretic. HEENT: Pupils equal, round, reactive to light and accommodation. Conjunctiva pink. No JVP. CARDIOVASCULAR SYSTEM: Heart is regular. There is no murmur or rub. CHEST: Patient does have some expiratory wheezes noted upper lung zimmerman, symmetrical, unlabored. ABDOMEN: Soft, nontender, nondistended. BACK: No CVA tenderness or sacral edema. She just has some generalized tenderness over her lower back. EXTREMITIES: No clubbing, cyanosis, edema. PSYCHIATRIC: Appropriate affect, pleasant mood. DIAGNOSTICS: Lab values are as follows: Hematology obtained on 04/17/2017: WBCs are 8.9, hemoglobin is 10.7, hematocrit is 30.8, platelet count is 532,000. Chemistry obtained on 04/17/2017: Sodium is 138, potassium 4.1, chloride is 103, carbon dioxide 24, BUN 8, creatinine is 0.53, glucose 107, calcium is 9.4. IMPRESSION AND PLAN: 1. ACUTE SINUSITIS, BRONCHITIS. The patient is tolerating doxycycline. She is feeling a little better from this standpoint. Continue Flonase, Singulair, Mucinex, and nebulizers; however, will add steroids as the patient sounds a little more wheezy today. 2. SEPSIS SECONDARY TO THE ABOVE. The patient's white count has improved. She is no longer tachycardic. She is afebrile. Will continue pulse oximetry. 3. SICKLE CELL DISEASE WITH CRISIS. Overall, the hemoglobin has been stable. The patient has a significant amount of pain. Will add a K pad. Will give an extra dose of Dilaudid now and an increased dose at bedtime at the patient's recommendation. Do appreciate Hematology's input with this. 4. DVT PROPHYLAXIS. Will continue Lovenox. DISPOSITION: The patient is a FULL CODE. Pending patient's symptomatology and diagnostic findings, will re-evaluate in the a.m. Time spent on this followup including assessment, plan, physical examination, patient education is 20 minutes. DICTATING PHYSICIAN: EVA HARRIS NP [id number] MARIANAY#: [id number] ID: [id number] JOB#: [id number] ACCT: [id number] cc: >
[2017-04-18] MEDS: LORATADINE 10 MG TABLET PO SCH (09:15)
[2017-04-18] MEDS: GUAIFENESIN 600 MG TABLET.SA PO SCH ×2 (09:15→21:19)
[2017-04-18] MEDS: PROMETHAZINE HCL 25 MG TABLET PO PRN ×2 (09:15→21:19)
[2017-04-18] MEDS: ENOXAPARIN SODIUM INJ 40 MG/0.4 ML DISP.SYRIN SUBCUT SCH (09:16)
[2017-04-18] MEDS: FLUTICASONE NASAL SPRAY 50 MCG/SPRY 120 SPRAY/16 GM NASL SCH ×2 (09:16→21:18)
--- NOTE | 2017-04-18 09:23 | RADIOLOGY REPORT (SQ) ---
EXAM DESCRIPTION: CHEST PA/LAT COMPLETED DATE/TIME: 04/18/2017 8:25 am REASON FOR STUDY: Congestion, SSC COMPARISON: Chest films 04/14/2017, 03/07/2017 EXAM PARAMETERS: NUMBER OF VIEWS: two views TECHNIQUE: Digital Frontal and Lateral radiographic views of the chest acquired. RADIATION DOSE: NA LIMITATIONS: none FINDINGS: LUNGS AND PLEURA: No opacities, masses or pneumothorax. No pleural effusion. MEDIASTINUM AND HILAR STRUCTURES: No masses or contour abnormalities. HEART AND VASCULAR STRUCTURES: Heart normal size. No evidence for failure. BONES: No acute findings. HARDWARE: Embolization coils are present in the left upper quadrant unchanged from prior studies. OTHER: No other significant finding. IMPRESSION: No acute findings TECHNICAL DOCUMENTATION: JOB ID: [id number] [employer]- All Rights Reserved
[2017-04-18] MEDS: DOXYCYCLINE HYCLATE 100 MG in DEXTROSE 5%-WATER 250 ML IV SCH (10:47)
[2017-04-18] MEDS: METHYLPREDNISOLONE INJ 40 MG/1 ML SDV IV SCH ×2 (13:41→21:19)
[2017-04-18] MEDS: 1/2 NORMAL SALINE 1,000 ML IV PRN (15:30)
[2017-04-18] MEDS ORDERED: CYCLOBENZAPRINE HCL 10 MG TABLET PO ONE (18:00)
[2017-04-18] MEDS: MONTELUKAST SODIUM 10 MG TABLET PO SCH (21:18)
[2017-04-18] MEDS: HYDROMORPHONE HCL INJ/PF 2 MG/ML AMPULE IV SCH (21:19)
[2017-04-18] MEDS ORDERED: HYDROMORPHONE HCL INJ/PF 2 MG/ML AMPULE IV SCH (22:00)
[2017-04-19] MEDS: DOXYCYCLINE HYCLATE 100 MG in DEXTROSE 5%-WATER 250 ML IV SCH ×3 (01:51→23:46)
[2017-04-19] MEDS: HYDROMORPHONE HCL INJ/PF 2 MG/ML AMPULE IV PRN ×3 (04:40→18:18)
[2017-04-19] MEDS: PROMETHAZINE HCL 25 MG TABLET PO PRN (04:40)
[2017-04-19] MEDS: METHYLPREDNISOLONE INJ 40 MG/1 ML SDV IV SCH (06:16)
[2017-04-19] MEDS ORDERED: PROMETHAZINE HCL 25 MG TABLET PO PRN (08:11)
--- NOTE | 2017-04-19 09:02 | PROGRESS NOTE E ---
Progress Note NAME: SWETA VIZCAINO : 1995 AGE: 21Y DATE: 04/19/2017 ROOM: 529 SUBJECTIVE: The patient is currently lying in bed. She states that she feels slightly better today. She feels that the Flexeril did improve her symptoms. The patient also says that she is now producing a significant amount of green sputum; however, it is exhausting to cough it up. The patient denies any vomiting, diarrhea, shortness of breath or dizziness. The patient does admit to nausea but says it is improved with Phenergan. The patient has had no chest pain, mainly back and shoulder pain. The patient has been afebrile, blood pressure has been in a good range, and the patient does not voice any other concerns at this time. ADDENDUM: Discussed the case with Dr. Cline. Recommendations have been made for flow cytometry. No further recommendation. Leukocytosis appears to be reactionary as there is no obvious source of infection. REVIEW OF SYSTEMS: The rest of the review of systems is negative. MEDICATIONS: Medications have been reviewed. OBJECTIVE: GENERAL: The patient is a 21-year-old -[place] female who is awake, alert, and oriented to person, place, time, and situation. She is verbal, conversational, ambulatory, does not appear to be in any acute distress. VITAL SIGNS: As follows: Temperature is 98.3, pulse 79, respirations 18, blood pressure is 101/65, oxygen saturation is 100% on room air. SKIN: Warm and dry. No rash, not diaphoretic. HEENT: Pupils equal, round, and reactive to light and accommodation. Conjunctivae pink. No JVP. CARDIOVASCULAR: Heart is regular. There is no murmur or rub. CHEST: Clear, symmetrical, unlabored. ABDOMEN: Soft, nontender, nondistended. BACK: No CVA tenderness or sacral edema. EXTREMITIES: No clubbing, cyanosis, edema. PSYCHIATRIC: Appropriate affect. Pleasant mood. DIAGNOSTICS: Lab values are as follows. Hematology obtained on 04/17/2017: WBCs are 18.9, hemoglobin is 10.7, hematocrit is 30.8, platelet count is 352,000. Chemistry obtained on 04/17/2017: Sodium is 138, potassium 4.1, chloride is 103, carbon dioxide 24, BUN 8, creatinine 0.53, glucose 107, calcium is 9.4. IMPRESSION AND PLAN: 1. ACUTE SINUSITIS AND BRONCHITIS. The patient has tolerated doxycycline. She is improving, now producing sputum; therefore, will add a Flutter Valve, continue with Flonase, Singulair and Mucinex, nebulizers and steroids. 2. SEPSIS SECONDARY TO THE ABOVE. The patient's white count has improved. She is no longer tachycardic. She is afebrile. Will continue pulse oximetry. 3. SICKLE CELL DISEASE CRISIS. The patient's hemoglobin has been stable. Patient has a significant amount of pain. Will continue K-pad, her extra dose of Dilaudid at bedtime as well as muscle relaxers. Will continue with pulse oximetry. 4. MORBID OBESITY WITH A BMI OF 51.7. Will encourage weight reduction. 5. DVT PROPHYLAXIS. Will continue Lovenox. The patient has been encouraged to ambulate in the hallways with assistance of staff, also to be out of bed to the bedside chair. Time spent on this followup, including assessment/plan, physical examination, patient education, is 25 minutes. DICTATING PHYSICIAN: EVA HARRIS NP [id number] PHY#: [id number] ID: [id number] JOB#: [id number] ACCT: [id number] cc: > MTDD
[2017-04-19] MEDS: ENOXAPARIN SODIUM INJ 40 MG/0.4 ML DISP.SYRIN SUBCUT SCH (09:26)
[2017-04-19] MEDS: FLUTICASONE NASAL SPRAY 50 MCG/SPRY 120 SPRAY/16 GM NASL SCH ×2 (09:26→21:35)
[2017-04-19] MEDS: GUAIFENESIN 600 MG TABLET.SA PO SCH ×2 (09:26→21:25)
[2017-04-19] MEDS: LORATADINE 10 MG TABLET PO SCH (09:26)
[2017-04-19 10:41] LABS: ANION GAP 11 (5-19); BLOOD UREA NITROGEN 9 mg/dL (7-20); CALCIUM 9.2 mg/dL (8.4-10.2); CARBON DIOXIDE 23 mmol/L (22-30); CHLORIDE 106 mmol/L (98-107); CREATININE RESULT 0.56 mg/dL (0.52-1.25); GLUCOSE 188 mg/dL (75-110); POTASSIUM 4.4 mmol/L (3.6-5.0); SODIUM 140.3 mmol/L (137-145)
[2017-04-19 11:17] LABS: HEMATOCRIT 32.2 % (36.0-47.0); HEMOGLOBIN 11.1 g/dL (12.0-15.5); HGB HCT DIFFERENCE 1.1; MEAN CORPUSCULAR HEMOGLOBIN 24.7 pg (27.0-33.4); MEAN CORPUSCULAR HGB CONC 34.5 g/dL (32.0-36.0); MEAN CORPUSCULAR VOLUME 72 fl (80-97); RED CELL DISTRIBUTION WIDTH 16.6 % (11.5-14.0)
[2017-04-19 11:45] LABS: WHITE BLOOD COUNT 42.7 10^3/uL (4.0-10.5)
[2017-04-19] MEDS: CYCLOBENZAPRINE HCL 10 MG TABLET PO SCH ×2 (14:39→21:25)
[2017-04-19] MEDS ORDERED: PREDNISONE 20 MG TABLET PO SCH (18:00)
[2017-04-19 19:01] LABS: APPEARANCE,URINE CLEAR; BILIRUBIN,URINE NEGATIVE (NEGATIVE); GLUCOSE, URINE NEGATIVE (NEGATIVE); KETONES,URINE NEGATIVE (NEGATIVE); LEUKOCYTE ESTERASE,URINE NEGATIVE (NEGATIVE); NITRITE,URINE NEGATIVE (NEGATIVE); PROTEIN,URINE NEGATIVE (NEGATIVE); URINE SPECIFIC GRAVITY 1.006; UROBILINOGEN,URINE NEGATIVE mg/dL (<2.0)
[2017-04-19] MEDS: 1/2 NORMAL SALINE 1,000 ML IV PRN (20:51)
[2017-04-19] MEDS: MONTELUKAST SODIUM 10 MG TABLET PO SCH (21:25)
[2017-04-19] MEDS: HYDROMORPHONE HCL INJ/PF 2 MG/ML AMPULE IV SCH (21:26)
[2017-04-20] MEDS: HYDROMORPHONE HCL INJ/PF 2 MG/ML AMPULE IV PRN ×4 (00:23→19:38)
[2017-04-20] MEDS: CYCLOBENZAPRINE HCL 10 MG TABLET PO SCH ×3 (06:06→21:35)
[2017-04-20 06:48] LABS: HEMATOCRIT 28.6 % (36.0-47.0); HEMOGLOBIN 9.9 g/dL (12.0-15.5); HGB HCT DIFFERENCE 1.1; MEAN CORPUSCULAR HEMOGLOBIN 24.8 pg (27.0-33.4); MEAN CORPUSCULAR HGB CONC 34.5 g/dL (32.0-36.0); MEAN CORPUSCULAR VOLUME 72 fl (80-97); RED BLOOD COUNT 3.99 10^6/uL (3.72-5.28); RED CELL DISTRIBUTION WIDTH 16.8 % (11.5-14.0)
[2017-04-20 06:58] LABS: ANION GAP 9 (5-19); BLOOD UREA NITROGEN 9 mg/dL (7-20); CALCIUM 8.8 mg/dL (8.4-10.2); CARBON DIOXIDE 23 mmol/L (22-30); CHLORIDE 107 mmol/L (98-107); CREATININE RESULT 0.54 mg/dL (0.52-1.25); GLUCOSE 149 mg/dL (75-110); MAGNESIUM 1.9 mg/dL (1.6-2.3); SODIUM 138.9 mmol/L (137-145)
[2017-04-20 07:30] LABS: WHITE BLOOD COUNT 45.4 10^3/uL (4.0-10.5)
[2017-04-20] MEDS ORDERED: PREDNISONE 20 MG TABLET PO SCH (09:07)
[2017-04-20] MEDS ORDERED: LIDOCAINE 2% VISCOUS SOLN 20 ML UDCUP PO ONE (10:00)
[2017-04-20] MEDS ORDERED: KETOROLAC TROMETHAMINE INJ/PF 30 MG/1 ML SDV IV ONE (10:00)
[2017-04-20] MEDS ORDERED: METOCLOPRAMIDE HCL ORAL SOLN 10 MG/10 ML UDCUP PO ONE (10:00)
[2017-04-20] MEDS ORDERED: MAG HYDROX/AL HYDROX/SIMETH SUSP 30 ML UDCUP PO ONE (10:00)
--- NOTE | 2017-04-20 10:07 | PROGRESS NOTE E ---
Progress Note NAME: SWETA VIZCAINO : 1995 AGE: 21Y DATE: 04/20/2017 ROOM: 529 SUBJECTIVE: The patient is currently sitting up in bed. She has bathed this morning and states that she feels much better but continues to have persistent back pain. The patient denies any nausea or vomiting. Does admit to some heartburn but no diarrhea, shortness of breath, dizziness, chest pain, no fever or chills. The patient has been afebrile. Her blood pressure has been in a good range, and the patient does not voice any other concerns at this time. REVIEW OF SYSTEMS: The rest of the review of systems is negative. MEDICATIONS: Medications have been reviewed. OBJECTIVE: GENERAL: The patient is a 21-year-old -[place] female who is awake, alert, and oriented to person, place, time, and situation. She is verbal, conversational, ambulatory, does not appear to be in any acute distress. VITAL SIGNS: As follows: Temperature is 98.3, pulse 84, respirations 16, blood pressure is 116/68, oxygen saturation is 100% on room air. SKIN: Warm and dry. No rash, not diaphoretic. HEENT: Pupils equal, round, and reactive to light and accommodation. Conjunctivae pink. No JVP. CARDIOVASCULAR: Heart is regular. There is no murmur or rub. CHEST: Clear, symmetrical, unlabored. ABDOMEN: Soft, nontender, nondistended. BACK: No CVA tenderness or sacral edema. EXTREMITIES: No clubbing, cyanosis, edema. PSYCHIATRIC: Appropriate affect. Pleasant mood. DIAGNOSTICS: Lab values are as follows. Hematology obtained on 04/20/2017: WBCs are 45.4, hemoglobin is 9.9, hematocrit is 28.6, platelet count is 501,000. Chemistry obtained on 04/20/2017: Sodium is 138, potassium 4.0, chloride is 107, carbon dioxide 23, BUN 9, creatinine 0.54, glucose 149, calcium is 8.8, magnesium is 1.9. IMPRESSION AND PLAN: 1. ACUTE SINUSITIS AND BRONCHITIS. The patient has tolerated doxycycline. The patient is improving. She is now producing significant amounts of sputum. Have added a Flutter Valve, continue with Flonase, Singulair and Mucinex, nebulizers and steroids. 2. SEPSIS SECONDARY TO THE ABOVE. The patient's white count did bump up. She is no longer tachycardic. She is afebrile. 3. SICKLE CELL CRISIS. The patient's hemoglobin has been stable. Patient's generalized pain has improved but continues to have persistent back pain. The patient is concerned that this actually may be a chronic issue. Have continued her K-pad, extra dose of Dilaudid at bedtime as well as muscle relaxers, which do seem to help. At the patient's request, will image her spine and follow. 4. LEUKOCYTOSIS. This has been a short ; however, it does correlate with adding steroids. I have discussed the patient with Dr. Cline and given that the patient's clinical picture is much improved, feel this may be just reactionary. Flow spirometry has been sent and ferritin has been added. 5. MORBID OBESITY WITH A BMI OF 51.7. Will encourage weight reduction. 6. DVT PROPHYLAXIS. The patient has been encouraged to ambulate in the hallway. She has also been out of bed to the bedside chair. Continue Lovenox. DISPOSITION: The patient is a FULL CODE. Pending the patient's symptomatology and diagnostic findings, will re-evaluate in the a.m. for discharge. Time spent on this followup, including assessment and plan, physical examination and patient education is 25 minutes. DICTATING PHYSICIAN: EVA HARRIS NP [id number] MARIANAY#: [id number] ID: [id number] JOB#: [id number] ACCT: [id number] cc: > MTDD
[2017-04-20] MEDS: ENOXAPARIN SODIUM INJ 40 MG/0.4 ML DISP.SYRIN SUBCUT SCH (10:09)
[2017-04-20] MEDS: PREDNISONE 10 MG TABLET PO SCH ×2 (10:10→17:29)
[2017-04-20] MEDS: GUAIFENESIN 600 MG TABLET.SA PO SCH ×2 (10:10→21:35)
[2017-04-20] MEDS: LORATADINE 10 MG TABLET PO SCH (10:10)
[2017-04-20] MEDS: DOXYCYCLINE HYCLATE 100 MG in DEXTROSE 5%-WATER 250 ML IV SCH ×2 (10:11→23:04)
[2017-04-20] MEDS: FLUTICASONE NASAL SPRAY 50 MCG/SPRY 120 SPRAY/16 GM NASL SCH ×2 (10:13→21:35)
--- NOTE | 2017-04-20 10:25 | RADIOLOGY REPORT (SQ) ---
EXAM DESCRIPTION: SPINE ENTIRE AP/LAT COMPLETED DATE/TIME: 04/20/2017 10:06 am REASON FOR STUDY: Intractable back and neck pain COMPARISON: None. NUMBER OF VIEWS: One view. TECHNIQUE: Three views cervical spine, two views thoracic spine, three views lumbar spine. LIMITATIONS: Large patient FINDINGS: Three-view cervical spine: Normal bone density. Normal alignment. Disc spaces are well maintained. No fracture. No vertebral body endplate irregularity. No acute fracture. Two-view thoracic spine: 12 thoracic vertebral bodies are present. 8 of convex leftward lower thoracic curvature from the to p of T8 to the bottom of T12. No thoracic compression deformity. Vertebral body endplates and disc spaces are well maintained. No acute fracture. Three-view lumbar spine: 5 lumbar vertebral bodies are present. Normal bone density. No vertebral body endplate compression or sclerosis. Mild lower lumbar facet arthropathy. No fracture or malalignment. SI joints intact. IMPRESSION: Unremarkable study TECHNICAL DOCUMENTATION: JOB ID: [id number] [employer]- All Rights Reserved
[2017-04-20] MEDS: 1/2 NORMAL SALINE 1,000 ML IV PRN (14:26)
[2017-04-20] MEDS: MONTELUKAST SODIUM 10 MG TABLET PO SCH (21:35)
[2017-04-20] MEDS: HYDROMORPHONE HCL INJ/PF 2 MG/ML AMPULE IV SCH (21:36)
[2017-04-21] MEDS: HYDROMORPHONE HCL INJ/PF 2 MG/ML AMPULE IV PRN ×2 (01:43→07:58)
[2017-04-21] MEDS: CYCLOBENZAPRINE HCL 10 MG TABLET PO SCH ×3 (06:26→21:36)
[2017-04-21] MEDS: 1/2 NORMAL SALINE 1,000 ML IV PRN (06:27)
--- NOTE | 2017-04-21 08:37 | PROGRESS NOTE E ---
Progress Note NAME: SWETA VIZCAINO : 1995 AGE: 21Y DATE: 04/21/2017 ROOM: 529 SUBJECTIVE: The patient is lying in bed. She states that all of her symptoms have resolved other than her back pain, which is excruciating. The patient denies any nausea, vomiting, diarrhea, no shortness of breath or dizziness, chest pain, no fever or chills. The patient has been afebrile. Her blood pressure has been in a good range, and the patient does not voice any other concerns at this time. REVIEW OF SYSTEMS: The rest of the review of systems is negative. MEDICATIONS: Medications have been reviewed. OBJECTIVE: GENERAL: The patient is a 21-year-old -[place] female who is awake, alert, and oriented to person, place, time, and situation. She is verbal, conversational, ambulatory, does not appear to be in any acute distress. VITAL SIGNS: As follows: Temperature is 97.3, pulse 85, respirations 19, blood pressure is 112/61, oxygen saturation is 100% on room air. SKIN: Warm and dry. No rash, not diaphoretic. HEENT: Pupils equal, round, and reactive to light and accommodation. Conjunctivae pink. No JVP. CARDIOVASCULAR: Heart is regular. There is no murmur or rub. CHEST: Clear, symmetrical, unlabored. ABDOMEN: Soft, nontender, nondistended. BACK: No CVA tenderness or sacral edema. EXTREMITIES: No clubbing, cyanosis, edema. PSYCHIATRIC: Appropriate affect. Pleasant mood. DIAGNOSTICS: Lab values are as follows. Hematology obtained on 04/20/2017: WBCs are 45,000, hemoglobin 9.9, hematocrit 28.6, platelet count 501,000. Today's labs are pending. IMPRESSION AND PLAN: 1. ACUTE SINUSITIS AND BRONCHITIS. The patient's symptoms have almost completely resolved. The patient is still producing some sputum. Will continue flutter valve as well as Flonase, Singulair, Mucinex, nebulizers and have tapered steroids. 2. SEPSIS SECONDARY TO THE ABOVE. The patient's white count did bump up a bit. She is no longer tachycardic, no longer afebrile, and overall her symptoms have improved. 3. SICKLE CELL CRISIS. Hemoglobin has been stable. Patient has had an ongoing back pain. Will continue K-Pad as needed and will transition to oral medications for pain instead of IV medications and follow. The patient's spine images were unremarkable. 4. LEUKOCYTOSIS. The patient has had elevated leukocytosis in the past. It appears her baseline may be in the high teens. The patient's symptoms clinically are much improved. Did discuss the case with Dr. Cline and flow cytology has been added but no other evidence of infection. 5. MORBID OBESITY WITH A BMI OF 51. Will encourage weight reduction. 6. DVT PROPHYLAXIS. The patient has been encouraged to ambulate in the hallway. She has also been out of bed to the bedside chair. Continue Lovenox. DISPOSITION: The patient is a FULL CODE. Pending the patient's symptomatology and diagnostic findings, will re-evaluate in the a.m. for discharge. Time spent on this followup, including assessment and plan, physical examination and patient education is 20 minutes. DICTATING PHYSICIAN: EVA HARRIS NP [id number] PHY#: [id number] ID: [id number] JOB#: [id number] ACCT: [id number] cc: >
[2017-04-21 09:16] LABS: HEMATOCRIT 29.7 % (36.0-47.0); HEMOGLOBIN 10.1 g/dL (12.0-15.5); HGB HCT DIFFERENCE 0.6; MEAN CORPUSCULAR HEMOGLOBIN 24.7 pg (27.0-33.4); MEAN CORPUSCULAR VOLUME 73 fl (80-97); RED BLOOD COUNT 4.08 10^6/uL (3.72-5.28); RED CELL DISTRIBUTION WIDTH 16.9 % (11.5-14.0)
[2017-04-21 09:24] LABS: ANION GAP 9 (5-19); BLOOD UREA NITROGEN 10 mg/dL (7-20); CALCIUM 8.7 mg/dL (8.4-10.2); CARBON DIOXIDE 24 mmol/L (22-30); CHLORIDE 105 mmol/L (98-107); CREATININE RESULT 0.67 mg/dL (0.52-1.25); GLUCOSE 97 mg/dL (75-110); POTASSIUM 3.9 mmol/L (3.6-5.0); SODIUM 138.3 mmol/L (137-145)
[2017-04-21 09:46] LABS: WHITE BLOOD COUNT 37.8 10^3/uL (4.0-10.5)
[2017-04-21] MEDS ORDERED: PREDNISONE 10 MG TABLET PO SCH (09:47)
[2017-04-21] MEDS: PREDNISONE 5 MG TABLET PO SCH ×2 (10:02→18:23)
[2017-04-21] MEDS: ENOXAPARIN SODIUM INJ 40 MG/0.4 ML DISP.SYRIN SUBCUT SCH (10:02)
[2017-04-21] MEDS: GUAIFENESIN 600 MG TABLET.SA PO SCH ×2 (10:02→21:36)
[2017-04-21] MEDS: FLUTICASONE NASAL SPRAY 50 MCG/SPRY 120 SPRAY/16 GM NASL SCH ×2 (10:02→21:40)
[2017-04-21] MEDS: LORATADINE 10 MG TABLET PO SCH (10:02)
[2017-04-21] MEDS: OXYCODONE HCL IR 5 MG TABLET PO PRN ×2 (13:35→18:23)
[2017-04-21] MEDS: MONTELUKAST SODIUM 10 MG TABLET PO SCH (21:37)
[2017-04-21] MEDS ORDERED: OXYCODONE HCL IR 5 MG TABLET PO SCH ×2 (22:00)
[2017-04-22] MEDS: OXYCODONE HCL IR 5 MG TABLET PO PRN ×2 (00:11→06:56)
[2017-04-22 05:24] LABS: HEMATOCRIT 30.6 % (36.0-47.0); HEMOGLOBIN 10.6 g/dL (12.0-15.5); HGB HCT DIFFERENCE 1.2; MEAN CORPUSCULAR HEMOGLOBIN 25.1 pg (27.0-33.4); MEAN CORPUSCULAR HGB CONC 34.7 g/dL (32.0-36.0); MEAN CORPUSCULAR VOLUME 72 fl (80-97); RED BLOOD COUNT 4.24 10^6/uL (3.72-5.28)
[2017-04-22 06:03] LABS: BAND NEUTROPHILS % (MANUAL) 5 % (3-5); BASOPHILS % (MANUAL) 2 % (0-2); EOSINOPHILS % (MANUAL) 3 % (0-6); LYMPHOCYTES % (MANUAL) 19 % (13-45); NUCLEATED RED BLOOD CELLS 1 /100 WBC (0); TOTAL CELLS COUNTED 100
[2017-04-22 06:04] LABS: TOXIC GRANULATION SLIGHT; TOXIC VACUOLATION PRESENT
[2017-04-22 06:07] LABS: ANISOCYTOSIS 1+; MICROCYTOSIS 1+; OVALOCYTES SLIGHT; POIKILOCYTOSIS SLIGHT; POLYCHROMASIA 1+; TARGET CELLS 3+; TEAR DROP CELLS SLIGHT
[2017-04-22 06:10] LABS: HYPOCHROMASIA SLIGHT
[2017-04-22 06:11] LABS: WHITE BLOOD COUNT 36.3 10^3/uL (4.0-10.5)
[2017-04-22] MEDS: CYCLOBENZAPRINE HCL 10 MG TABLET PO SCH (06:56)
--- NOTE | 2017-04-22 08:57 | DISCHARGE SUMMARY E ---
Discharge Summary NAME: SWETA VIZCAINO : 1995 AGE: 21Y ADMITTED: 04/14/2017 DISCHARGED: 04/22/2017 CODE STATUS: FULL CODE. 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 Cline DISCHARGE DIAGNOSES: Includes: 1. Acute sinusitis. 2. Acute bronchitis. 3. Sepsis secondary to the above. 4. Sickle cell crisis. 5. Persistent leukocytosis. 6. Morbid obesity with a BMI of 51. DISCHARGE MEDICATIONS: Include: 1. Flexeril 10 mg p.o. q. 8 hours p.r.n., 10 tablets with 0 refills. 2. Flonase 2 sprays nasally q. 12 hours 1 bottle, 0 refills. 3. Claritin 10 mg p.o. daily, 10 tablets with 0 refills. 4. OxyIR 5 mg p.o. q. 4 hours p.r.n., 10 tablets, 0 refills. 5. Phenergan 25 mg p.o. q. 6 hours p.r.n., 7 tablets with 0 refills. 6. Meclizine 25 mg p.o. q. 8 hours p.r.n., 7 tablets, 0 refills. DIET: As tolerated. ACTIVITY: As tolerated. DIAGNOSTICS: Lab values are as follows: Hematology obtained on 04/22/2017: WBCs are 36.3, hemoglobin is 10.6, hematocrit is 30.6, platelet count is 492,000. Chemistry obtained on 04/21/2017: Sodium is 138, potassium 3.9, chloride is 105, carbon dioxide 24, BUN 10, creatinine is 0.67, glucose 97. Lactic acid is 0.8, calcium is 8.7, magnesium is 1.9, ferritin is 174, total bilirubin is 0.8. AST 32, ALT is 71, Alk phos 159, total protein is 9.0, albumin 3.7. HCG is negative. Urinalysis obtained on 04/19/2017: Color straw, appearance clear. PH is 6.0, specific gravity is 1.006. Protein negative, glucose negative, ketones negative, occult blood moderate, nitrate negative, bilirubin negative, urobilinogen is negative, leukocyte esterase negative. WBCs 2, RBCs 5, epithelial squamous cells 1, mucus rare, ascorbic acid is negative. Serology obtained on 04/14/2017: Group A strep is negative. Immunology obtained on 04/19/2017: Flow cytology is pending. Microbiology obtained on 04/14/2017: Blood cultures are negative. Throat culture obtained on 04/14/2017: Throat culture is negative. Chest x-ray obtained on 04/14/2017 reveals moderate lung volumes, no acute findings. Chest x-ray obtained on 04/18/2017 revealed no acute findings. Spine x-ray obtained on 04/20/2017 reveals an unremarkable study. PHYSICAL EXAMINATION: GENERAL: On examination, the patient is a well-developed, morbidly obese 21-year-old -[place] female who is awake, alert, and oriented to person, place, time, and situation. She is verbal, conversational, does not appear to be in any acute distress. VITAL SIGNS: Temperature is 98.0, pulse 85, respirations 18, blood pressure is 116/73, oxygen saturation 98% on room air. SKIN: Warm and dry. No rash. Not diaphoretic. HEENT: Pupils equal, round, and reactive to light and accommodation. Conjunctiva pink. No JVP. CARDIOVASCULAR SYSTEM: Heart is regular. There is no murmur or rub. CHEST: Clear, symmetrical, unlabored. ABDOMEN: Soft, nontender, nondistended. BACK: No CVA tenderness or sacral edema. EXTREMITIES: No clubbing, cyanosis, edema. PSYCHIATRIC: Appropriate affect. Pleasant mood. HISTORY OF PRESENT ILLNESS: The patient is a very pleasant 21-year-old -[place]cu[place] female with a past medical history of underlying sickle cell disease. The patient presented to the emergency department with a chief complaint of cough and painful swallowing. The patient gave a 2-day history of cramping and sharp initial back pain and abdominal pain, which eventually migrated to her arms and legs. The patient stated this was her usual pattern for sickle cell crisis. The patient had nausea and several episodes of vomiting with a temperature of 102.0 just 2 days prior, but no diarrhea or dysuria. The patient gives a 10-day history of intermittent, somewhat congested cough. Multiple family members had similar complaints, including her young son. The patient also noted some painful swallowing given her sore throat. Upon presentation to the emergency department, the patient was noted to have a reticulate count as well as leukocytosis of 25,000 and was highly congested, and the patient was referred to the hospitalist for admission and management. HOSPITAL COURSE: The patient was admitted to continuous telemetry unit. The patient was placed on continuous pulse oximetry and the patient had no recorded episodes of hypoxia. The patient's mild dyspnea did improve. The patient's congestion also improved with the addition of antibiotic coverage. The patient completed a course of antibiotics and has had symptom resolution of her bronchitis, sinusitis-type symptoms. The patient's pain was controlled with IV Dilaudid, and the patient has been transitioned over to oral OxyContin, and Dr. Cline was consulted and the case was discussed with her enamel sprayer. The patient appears to have a persistent leukocytosis upon review of previous hospital contacts. The patient did have a spike in her WBCs with the addition of steroid coverage due to her wheezing. Therefore, this bump was reactionary given the absence of the patient's fever, hypotension, or evidence of a sepsis process. A flow cytology, however, was added to the patient's labs. The patient has had almost complete symptom resolution with the exclusion of mild vertigo and some back pain, and the patient is quite eager for discharge. DISCHARGE PLANNING: The patient is to follow up with her enamel sprayer, Dr. Cline, within 1 week for hospital followup. Time spent on this discharge including assessment, plan, physical examination, patient education is 25 minutes. DICTATING PHYSICIAN: EVA HARRIS NP [id number] PHY#: [id number] ID: [id number] JOB#: [id number] ACCT: [id number] cc:JADYN OLIVA M.D. >
[2017-04-22 09:02] VITALS: BP 127/88
[2017-04-22] MEDS ORDERED: BENZONATATE 100 MG CAPSULE PO PRN (10:49)
[2017-04-22 15:07] LABS: PATH REVIEW PATHOLOGIST REVIEWED
== END 2017-04-22 10:49 | disposition home or self-care (01) | DRG 202 ==
LOC: ER 01:07 → UNDOADMIN 06:16 → EH 06:16 → 5 07:30 → EH 07:42 → 5 04-18 03:30
PROVIDERS: ADMIT Family Medicine; ATTEND Family Medicine
DX: J20.9 Acute bronchitis, unspecified (principal); D57.00 Hb-SS disease with crisis, unspecified; Z68.43 Body mass index [BMI] 50.0-59.9, adult; J01.90 Acute sinusitis, unspecified; E66.01 Morbid (severe) obesity due to excess calories; H91.90 Unspecified hearing loss, unspecified ear; F17.200 Nicotine dependence, unspecified, uncomplicated; Z88.8 Allergy status to other drugs, medicaments and biological substances
CPT/HCPCS: 36415; 71020; 72082; 80048; 80053; 81001; 82728; 83605; 83735; 84703; 85025; 85027; 85045; 87040; 87070; 87880; 88184; 88185; 94667; 94668; 94762; 96361; 96374; 96375; 99285; J0696; J1170; J1650; J1885; J2405; J2920; J3490; J7030; J7060; J7512

== ENCOUNTER 2017-10-24 15:13 | Emergency (ER) | payer MEDICAID ==
[2017-10-24] MEDS ORDERED: NORMAL SALINE 1000 ML 1,000 ML IV ONE (16:24)
[2017-10-24 16:55] LABS: HEMATOCRIT 32.9 % (36.0-47.0); HEMOGLOBIN 11.3 g/dL (12.0-15.5); MEAN CORPUSCULAR HEMOGLOBIN 24.4 pg (27.0-33.4); MEAN CORPUSCULAR HGB CONC 34.3 g/dL (32.0-36.0); MEAN CORPUSCULAR VOLUME 71 fl (80-97); PLATELET COUNT 476 10^3/uL (150-450); RED BLOOD COUNT 4.63 10^6/uL (3.72-5.28); RED CELL DISTRIBUTION WIDTH 17.4 % (11.5-14.0); RETICULOCYTE COUNT (AUTO) 3.88 % (0.66-2.85); WHITE BLOOD COUNT 19.4 10^3/uL (4.0-10.5)
[2017-10-24 17:00] LABS: ALANINE AMINOTRANSFERASE 35 U/L (9-52); ALKALINE PHOSPHATASE 118 U/L (38-126); ANION GAP 11 (5-19); ASPARTATE AMINO TRANSFERASE 22 U/L (14-36); BILIRUBIN,DIRECT 0.1 mg/dL (0.0-0.4); BILIRUBIN,TOTAL 0.4 mg/dL (0.2-1.3); BLOOD UREA NITROGEN 6 mg/dL (7-20); CALCIUM 9.4 mg/dL (8.4-10.2); CARBON DIOXIDE 24 mmol/L (22-30); CHLORIDE 106 mmol/L (98-107); GLUCOSE 81 mg/dL (75-110); POTASSIUM 4.4 mmol/L (3.6-5.0); SODIUM 141.2 mmol/L (137-145); TOTAL PROTEIN 6.7 g/dL (6.3-8.2)
[2017-10-24 17:29] LABS: ABSOLUTE MONOCYTES # (MANUAL) 1.6 10^3/uL (0.1-1.4); ABSOLUTE NEUTROPHILS# (MANUAL) 11.4 10^3/uL (1.7-8.2); BAND NEUTROPHILS % (MANUAL) 4 % (3-5); BASOPHILS % (MANUAL) 1 % (0-2); EOSINOPHILS % (MANUAL) 1 % (0-6); LYMPHOCYTES % (MANUAL) 29 % (13-45); MONOCYTES % (MANUAL) 8 % (3-13); SEGMENTED NEUTROPHILS % (MAN) 55 % (42-78); TOTAL CELLS COUNTED 100
[2017-10-24 17:30] LABS: ANISOCYTOSIS 1+; HYPOCHROMASIA SLIGHT; POIKILOCYTOSIS SLIGHT; POLYCHROMASIA SLIGHT; TOXIC GRANULATION SLIGHT
[2017-10-24 17:31] LABS: PLATELET COMMENT INCREASED; TARGET CELLS 2+
[2017-10-24] MEDS ORDERED: FENTANYL CITRATE INJ/PF 100 MCG/2 ML AMPUL IV ONE (19:18)
--- NOTE | 2017-10-24 20:48 | RADIOLOGY REPORT (SQ) ---
EXAM DESCRIPTION: CHEST PA/LAT COMPLETED DATE/TIME: 10/24/2017 8:37 pm REASON FOR STUDY: cough COMPARISON: 04/18/2017 EXAM PARAMETERS: NUMBER OF VIEWS: two views TECHNIQUE: Digital Frontal and Lateral radiographic views of the chest acquired. RADIATION DOSE: NA LIMITATIONS: none FINDINGS: LUNGS AND PLEURA: No opacities, masses or pneumothorax. No pleural effusion. MEDIASTINUM AND HILAR STRUCTURES: No masses or contour abnormalities. HEART AND VASCULAR STRUCTURES: Heart normal size. No evidence for failure. BONES: No acute findings. HARDWARE: None in the chest. OTHER: No other significant finding. IMPRESSION: NO SIGNIFICANT RADIOGRAPHIC FINDING IN THE CHEST. TECHNICAL DOCUMENTATION: JOB ID: [id number] [email or web address]- All Rights Reserved
[2017-10-24] MEDS ORDERED: METOCLOPRAMIDE HCL INJ/PF 10 MG/2 ML SDV IV ONE (21:18)
--- NOTE | 2017-10-24 21:19 | ER Document Report ---
ED General - General Chief Complaint: Sickle Cell Crisis Stated Complaint: NAUSEA,VOMITING Time Seen by Provider: 10/24/17 16:16 Mode of Arrival: Ambulatory Information source: Patient TRAVEL OUTSIDE OF THE [place] IN LAST 30 DAYS: No - HPI Patient complains to provider of: Body aches Onset: Just prior to arrival Onset/Duration: Sudden Severity: Moderate Pain Level: 4 Associated symptoms: Nausea Exacerbated by: Movement Relieved by: Denies Similar symptoms previously: Yes Recently seen / treated by doctor: No Notes: Patient states she saw her doctor at [facility] Dr. Russ, 2 weeks ago. She states she did prescribe hydroxyurea however the patient tried it for 2 weeks and did not like how it made her feel so she stopped taking it. Patient states that she has had body aches that started at work today. Patient presents here with her boss. Patient denies fevers. She has nausea no vomiting or diarrhea. No abdominal pain. Believes this is her normal sickle cell crisis. Patient was given 100 mcg of fentanyl in route to the emergency department and hydrated. - Related Data Allergies/Adverse Reactions: tramadol Adverse Reaction (Verified 10/24/17 15:16) palpitations Past Medical History - General Information source: Patient - Social History Smoking Status: Never Smoker Frequency of alcohol use: None Drug Abuse: None Lives with: Family Family History: Hypertension Patient has suicidal ideation: No Patient has homicidal ideation: No - Past Medical History Cardiac Medical History: Denies: Hx Atrial Fibrillation, Hx Congestive Heart Failure, Hx DVT, Hx Heart Attack, Hx Hypercholesterolemia, Hx Hypertension, Hx Pulmonary Embolism Pulmonary Medical History: Denies: Hx Asthma, Hx COPD Neurological Medical History: Denies: Hx Seizures Endocrine Medical History: Denies: Hx Diabetes Mellitus Type 1, Hx Diabetes Mellitus Type 2, Hx Hyperthyroidism, Hx Hypothyroidism Renal/ Medical History: Denies: Hx Peritoneal Dialysis Malignancy Medical History: Reports: None GI Medical History: Denies: Hx Cirrhosis, Hx Gastroesophageal Reflux Disease, Hx Hepatitis Musculoskeltal Medical History: Denies Hx Arthritis Skin Medical History: Reports None Psychiatric Medical History: Reports: None Denies: Hx Depression Traumatic Medical History: Reports: Hx Spleen Laceration/Rupture Infectious Medical History: Denies: Hx Hepatitis 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 - Immunizations Immunizations up to date: Yes Review of Systems - Review of Systems Constitutional: denies: Fever, Recent illness EENT: No symptoms reported Cardiovascular: No symptoms reported Respiratory: No symptoms reported Gastrointestinal: Nausea Genitourinary: No symptoms reported Female Genitourinary: No symptoms reported Musculoskeletal: No symptoms reported Skin: No symptoms reported Hematologic/Lymphatic: No symptoms reported Neurological/Psychological: No symptoms reported Physical Exam - Vital signs Vitals: Temp Pulse BP Pulse Ox 97.9 F 71 134/92 H 98 10/24/17 15:27 10/24/17 15:27 10/24/17 15:27 10/24/17 15:27 - Notes Notes: PHYSICAL EXAMINATION: GENERAL: Well-appearing, well-nourished and in no acute distress. HEAD: Atraumatic, normocephalic. EYES: Pupils equal round and reactive to light, extraocular movements intact, conjunctiva are normal. ENT: Nares patent, oropharynx clear without exudates. Moist mucous membranes. NECK: Normal range of motion, supple without lymphadenopathy LUNGS: Breath sounds clear to auscultation bilaterally and equal. No wheezes rales or rhonchi. HEART: Regular rate and rhythm without murmurs ABDOMEN: Soft, nontender, nondistended abdomen. No guarding, no rebound. No masses appreciated. Female : deferred Musculoskeletal: Normal range of motion, no pitting or edema. No cyanosis. NEUROLOGICAL: Cranial nerves grossly intact. Normal speech, normal gait. Normal sensory, motor exams PSYCH: Normal mood, normal affect. SKIN: Warm, Dry, normal turgor, no rashes or lesions noted. I Course - Re-evaluation Re-evalutation: 10/24/17 21:19 Patient is now complaining of headache. I have gone to see her 3 times. She is asking for more pain medication as well as to eat. She states she is hungry. CAT scan of the head ordered. Reglan ordered. IV fluids and pain medications are being given 10/24/17 23:11 Patient is feeling better. She is kept on p.o. fluids. She states her headaches resolved her body aches are better she like to go home. 10/24/17 23:28 Labs- All tests 24 hr 10/24/17 10/24/17 16:10 16:10 WBC 19.4 H RBC 4.63 Hgb 11.3 L Hct 32.9 L MCV 71 L MCH 24.4 L MCHC 34.3 RDW 17.4 H Plt Count 476 H Total Counted 100 Seg Neutrophils % Not Reportable Seg Neuts % (Manual) 55 Band Neutrophils % 4 Lymphocytes % Not Reportable Lymphocytes % (Manual) 29 Atypical Lymphs % 2 Monocytes % Not Reportable Monocytes % (Manual) 8 Eosinophils % Not Reportable Eosinophils % (Manual) 1 Basophils % Not Reportable Basophils % (Manual) 1 Absolute Neutrophils Not Reportable Abs Neuts (Manual) 11.4 H Absolute Lymphocytes Not Reportable Abs Lymphs (Manual) 6.0 H Absolute Monocytes Not Reportable Abs Monocytes (Manual) 1.6 H Absolute Eosinophils Not Reportable Absolute Eos (Manual) 0.2 Absolute Basophils Not Reportable Abs Basophils (Manual) 0.2 Toxic Granulation SLIGHT Platelet Comment INCREASED Polychromasia SLIGHT Hypochromasia SLIGHT Poikilocytosis SLIGHT Anisocytosis 1+ Microcytosis 1+ Target Cells 2+ Retic Count (auto) 3.88 H Absolute Retic 0.180 H Sodium 141.2 Potassium 4.4 Chloride 106 Carbon Dioxide 24 Anion Gap 11 BUN 6 L Creatinine 0.54 Est GFR ( Amer) > 60 Est GFR (Non-Af Amer) > 60 Glucose 81 Calcium 9.4 Total Bilirubin 0.4 Direct Bilirubin 0.1 Neonat Total Bilirubin Not Reportable Neonat Direct Bilirubin Not Reportable Neonat Indirect Bili Not Reportable AST 22 ALT 35 Alkaline Phosphatase 118 Total Protein 6.7 Albumin 4.0 She is tolerating p.o. 10/24/17 23:29 Review patient's old labs. She normally has a leukocytosis. It has been as high as the 30s. 10/24/17 23:29 Chest X-Ray 10/24/17 19:19 IMPRESSION: NO SIGNIFICANT RADIOGRAPHIC FINDING IN THE CHEST. Head CT 10/24/17 21:18 IMPRESSION: NORMAL BRAIN CT WITHOUT CONTRAST. EVIDENCE OF ACUTE STROKE: NO. - Vital Signs Vital signs: Temp Pulse Resp BP Pulse Ox 98.5 F 71 18 139/101 H 100 10/24/17 23:16 10/24/17 15:27 10/24/17 23:01 10/24/17 22:16 10/24/17 23:01 - Laboratory Result Diagrams: 10/24/17 16:10 10/24/17 16:10 Laboratory results interpreted by me: 10/24/17 10/24/17 16:10 16:10 WBC 19.4 H Hgb 11.3 L Hct 32.9 L MCV 71 L MCH 24.4 L RDW 17.4 H Plt Count 476 H Abs Neuts (Manual) 11.4 H Abs Lymphs (Manual) 6.0 H Abs Monocytes (Manual) 1.6 H Retic Count (auto) 3.88 H Absolute Retic 0.180 H BUN 6 L Discharge - Discharge Clinical Impression: Sickle cell anemia with crisis Condition: Stable Disposition: HOME, SELF-CARE Instructions: Sickle Cell Crisis ([facility]) Additional Instructions: Follow up with your physician tomorrow for further care or return to the ED IMMEDIATELY if symptoms worsen or new concerns occur. If you cannot afford to follow up with your primary care physician a list of low cost clinics have been provided at the end of your discharge papers as well. Call [facility] and follow-up with your doctor in the next few days. Return to the emergency department if you have intractable vomiting, fevers, abdominal pain or any other concerns. Referrals: MARY ANNE SNOW MD [Primary Care Provider] - Follow up in 3-5 days
[2017-10-24] MEDS ORDERED: ONDANSETRON HCL INJ/PF 4 MG/2 ML SDV IV ONE (21:40)
--- NOTE | 2017-10-24 22:07 | RADIOLOGY REPORT (SQ) ---
EXAM DESCRIPTION: CT HEAD WITHOUT COMPLETED DATE/TIME: 10/24/2017 9:59 pm REASON FOR STUDY: headache COMPARISON: None. TECHNIQUE: Axial images acquired through the brain without intravenous contrast. Images reviewed wi th bone, brain and subdural windows. Images stored on PACS. All CT scanners at this facility use dose modulation, iterative reconstruction, and/or weight based d osing when appropriate to reduce radiation dose to as low as reasonably achievable (ALARA). [facility]: Dose Right [facility]: CareDose [facility]: Dose Right [facility]: Teradose 4D [facility]: CourseAdvisor RADIATION DOSE: CT Rad equipment meets quality standard of care and radiation dose reduction techniq ues were employed. CTDIvol: 67.0 mGy. DLP: 1182 mGy-cm. mGy. LIMITATIONS: None. FINDINGS: VENTRICLES: Normal size and contour. CEREBRUM: No masses. No hemorrhage. No midline shift. No evidence for acute infarction. Normal gra y/white matter differentiation. No areas of low density in the white matter. CEREBELLUM: No masses. No hemorrhage. No alteration of density. No evidence for acute infarction. EXTRAAXIAL SPACES: No fluid collections. No masses. ORBITS AND GLOBE: No intra- or extraconal masses. Normal contour of globe without masses. CALVARIUM: No fracture. PARANASAL SINUSES: No fluid or mucosal thickening. SOFT TISSUES: No mass or hematoma. OTHER: No other significant finding. IMPRESSION: NORMAL BRAIN CT WITHOUT CONTRAST. EVIDENCE OF ACUTE STROKE: NO. COMMENT: Quality ID # [id number]: Final reports with documentation of one or more dose reduction techniques (e.g., Automated exposure control, adjustment of the mA and/or kV according to patient size, use of iterative reconstruction technique) TECHNICAL DOCUMENTATION: JOB ID: [id number] [employer]- All Rights Reserved
[2017-10-24 22:29] VITALS: BP 139/101
== END 2017-10-25 00:20 | disposition home or self-care (01) ==
LOC: ER 15:13
DX: D57.00 Hb-SS disease with crisis, unspecified (principal); R11.2 Nausea with vomiting, unspecified; M79.1 Myalgia; Z79.899 Other long term (current) drug therapy
CPT/HCPCS: 99285; 96361; 96374; 96375; 36415; 85025; 85045; 80053; 71046; 70450; J3010; J2765; J2405; J7030

== ENCOUNTER 2018-01-13 19:47 | Emergency (ER) | payer MEDICAID ==
--- NOTE | 2018-01-13 21:24 | ER Document Report ---
ED Eye Complaint - General Chief Complaint: Eye Problem Stated Complaint: EYE PAIN Time Seen by Provider: 01/13/18 20:45 Mode of Arrival: Ambulatory Information source: Patient TRAVEL OUTSIDE OF THE [place] IN LAST 30 DAYS: No - HPI Patient complains to provider of: EYE DRAINAGE Onset: Yesterday Eye location: Bilateral Notes: Patient states that she is here with complaints of eye drainage. She states that both eyes had a little bit of drainage but today the right one seems to be draining a lot and is getting red. She complains of some irritation to the right eye. She is a contact wearer. She denies any injury. She denies any fever. No nausea, vomiting, diarrhea. She does complain of some mild blurred vision. No fevers. No rash. No chest pain or shortness of breath. Nothing seems to make her symptoms better or worse. No other complaints at this time. - Related Data Allergies/Adverse Reactions: tramadol Adverse Reaction (Verified 10/24/17 15:16) palpitations Past Medical History - Social History Smoking Status: Never Smoker Chew tobacco use (# tins/day): No Frequency of alcohol use: None Drug Abuse: None Family History: Hypertension Patient has suicidal ideation: No Patient has homicidal ideation: No - Past Medical History Cardiac Medical History: Denies: Hx Atrial Fibrillation, Hx Congestive Heart Failure, Hx DVT, Hx Heart Attack, Hx Hypercholesterolemia, Hx Hypertension, Hx Pulmonary Embolism Pulmonary Medical History: Denies: Hx Asthma, Hx COPD Neurological Medical History: Denies: Hx Seizures Endocrine Medical History: Denies: Hx Diabetes Mellitus Type 1, Hx Diabetes Mellitus Type 2, Hx Hyperthyroidism, Hx Hypothyroidism Renal/ Medical History: Denies: Hx Peritoneal Dialysis GI Medical History: Denies: Hx Cirrhosis, Hx Gastroesophageal Reflux Disease, Hx Hepatitis Musculoskeltal Medical History: Denies Hx Arthritis Psychiatric Medical History: Denies: Hx Depression Traumatic Medical History: Reports: Hx Spleen Laceration/Rupture Infectious Medical History: Denies: Hx Hepatitis 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 HEAD: normocephalic, atraumatic EYES: Conjunctival injection of the right eye. Appears to be a corneal ulcer at approximately 12:00 to the left cornea. No foreign body. Green drainage noted. Left eye with no redness or drainage or obvious corneal abrasion. No foreign bodies. No periorbital redness or swelling. EARS: no external swelling, no external redness NOSE: atraumatic, no external swelling MOUTH/THROAT: mucous membranes moist and pink NECK: soft, supple, full range of motion, no meningismus. CHEST: no distress, lungs clear and equal throughout. No wheezing, rales, rhonchi. CARDIAC: regular rate and rhythm, no murmur, normal capillary refill, normal pulses. BACK: full range of motion, no CVA tenderness. EXTREMITIES: full range of motion of all extremities. No redness, no swelling. NEURO: alert and oriented 3, no focal deficits, full range of motion of all extremities. PYSCH: appropriate mood, affect. Patient is cooperative. SKIN: pink, warm, dry, no rash. - HEENT Visual acuity- Right eye: 20/30 Visual acuity- Left eye: 20/40 Corrective lenses worn: Yes - contacts bilaterally Course - Re-evaluation Re-evalutation: 01/13/18 22:30 Patient is nontoxic appearing with stable vitals. She is here with complaints of left eye redness and drainage. The patient does wear contacts. She denies any injuries. On exam she is noted to have conjunctival injection with green drainage. Unfortunately there is absolutely no flUORACEIN staying in the hospital, therefore I am unable to perform a stain exam on this patient at this time. I cannot completely rule out dendritic lesions as there is no stain available. The left eye appears to be unremarkable to the naked eye. This point the patient was given Ciloxan eyedrops in the emergency department. She will be discharged home with instructions to take Ciloxan eyedrops 1 drop every hour while awake for the next 2 days and then every 4 hours for the next 5 days. Patient will be instructed to follow-up with ophthalmology at the next available appointment. She was instructed to not wear her contacts. Follow-up sooner for worsening pain, fever, blurred or loss vision, redness or swelling around the outside eye, or for any further concerns. The patient is noted to have elevated blood pressure during today's emergency department visit. The patient was informed of this finding. The patient was instructed that this may be related to pre-hypertension and requires further evaluation with a primary care provider. The patient has no hypertensive symptoms at this time. The patient's emergency department workup and current diagnosis were explained to the patient and or family. Follow-up instructions were provided. Medications if prescribed were discussed. Instructions for when to return to the emergency department including specific worrisome symptoms were discussed with the patient and/or family. - Vital Signs Vital signs: Temp Pulse Resp BP Pulse Ox 98.9 F 92 34 H 150/90 H 100 01/13/18 20:12 01/13/18 20:12 01/13/18 20:12 01/13/18 20:12 01/13/18 20:12 Discharge - Discharge Clinical Impression: Corneal ulcer Qualifiers: Laterality: right Qualified Code(s): H16.001 - Unspecified corneal ulcer, right eye Conjunctivitis Qualifiers: Conjunctivitis type: acute Acute conjunctivitis type: unspecified Laterality: right Qualified Code(s): H10.31 - Unspecified acute conjunctivitis, right eye Condition: Stable Disposition: HOME, SELF-CARE Instructions: Antibiotic Therapy ([facility]), Conjunctivitis ([facility]), Eyedrop Use ([facility]) , Contact Lens Ulcer, Corneal Ulceration ([facility]) Additional Instructions: Use antibiotic eyedrops in her right eye every hour while awake for 2 days, then every 4 hours for 5 more days. Do not wear your contacts. Follow-up with ophthalmology at the next available appointment. Follow-up sooner for worsening pain, fever, redness or swelling around the outside of the eye, loss vision, or for any further concerns. Your blood pressure was elevated during today's visit. Have this rechecked with your doctor. Prescriptions: Ciprofloxacin HCl [Ciloxan 0.3% Oph Soln 2.5 ml] 1 drop OP Q4H 7 Days #1 bottle Forms: Elevated Blood Pressure, Smoking Cessation Education, Return to Work Referrals: LETTY MARTIN MD [ACTIVE STAFF] - Follow up as needed
[2018-01-13] MEDS ORDERED: CIPROFLOXACIN HCL 0.3% OPH SOLN 2.5 ML OD ONE (22:24)
[2018-01-13 22:43] VITALS: BP 154/100
== END 2018-01-13 22:42 | disposition home or self-care (01) ==
LOC: ER 19:47
DX: H16.001 Unspecified corneal ulcer, right eye (principal); H10.31 Unspecified acute conjunctivitis, right eye; R03.0 Elevated blood-pressure reading, without diagnosis of hypertension; H53.8 Other visual disturbances
CPT/HCPCS: 99283; J3490

== ENCOUNTER 2018-04-03 22:21 | Emergency (ER) | payer MEDICAID ==
[2018-04-03 23:47] LABS: APPEARANCE,URINE CLEAR; BILIRUBIN,URINE NEGATIVE (NEGATIVE); COLOR,URINE YELLOW; GLUCOSE, URINE NEGATIVE (NEGATIVE); KETONES,URINE NEGATIVE (NEGATIVE); LEUKOCYTE ESTERASE,URINE TRACE (NEGATIVE); NITRITE,URINE NEGATIVE (NEGATIVE); PROTEIN,URINE NEGATIVE (NEGATIVE); URINE SPECIFIC GRAVITY 1.013; UROBILINOGEN,URINE NEGATIVE mg/dL (<2.0)
[2018-04-03 23:49] LABS: ABSOLUTE RETICS # 0.179 10^6/uL (0.028-0.122); HEMATOCRIT 33.3 % (36.0-47.0); HEMOGLOBIN 11.6 g/dL (12.0-15.5); MEAN CORPUSCULAR HEMOGLOBIN 24.2 pg (27.0-33.4); MEAN CORPUSCULAR HGB CONC 34.8 g/dL (32.0-36.0); MEAN CORPUSCULAR VOLUME 70 fl (80-97); PLATELET COUNT 483 10^3/uL (150-450); RED BLOOD COUNT 4.78 10^6/uL (3.72-5.28); RED CELL DISTRIBUTION WIDTH 17.3 % (11.5-14.0); RETICULOCYTE COUNT (AUTO) 3.74 % (0.66-2.85)
[2018-04-03 23:54] LABS: ALANINE AMINOTRANSFERASE 44 U/L (9-52); ALBUMIN 3.8 g/dL (3.5-5.0); ALKALINE PHOSPHATASE 155 U/L (38-126); ANION GAP 12 (5-19); ASPARTATE AMINO TRANSFERASE 37 U/L (14-36); BILIRUBIN,DIRECT 0.3 mg/dL (0.0-0.4); BILIRUBIN,TOTAL 0.8 mg/dL (0.2-1.3); BLOOD UREA NITROGEN 11 mg/dL (7-20); CALCIUM 9.1 mg/dL (8.4-10.2); CARBON DIOXIDE 21 mmol/L (22-30); CHLORIDE 108 mmol/L (98-107); GLUCOSE 82 mg/dL (75-110); SODIUM 140.8 mmol/L (137-145); TOTAL PROTEIN 7.1 g/dL (6.3-8.2)
[2018-04-04 00:02] LABS: ABSOLUTE LYMPHOCYTES# (MANUAL) 6.5 10^3/uL (0.5-4.7); ABSOLUTE MONOCYTES # (MANUAL) 0.9 10^3/uL (0.1-1.4); ABSOLUTE NEUTROPHILS# (MANUAL) 9.4 10^3/uL (1.7-8.2); BAND NEUTROPHILS % (MANUAL) 1 % (3-5); BASOPHILS % (MANUAL) 0 % (0-2); EOSINOPHILS % (MANUAL) 7 % (0-6); LYMPHOCYTES % (MANUAL) 33 % (13-45); MONOCYTES % (MANUAL) 5 % (3-13); SEGMENTED NEUTROPHILS % (MAN) 51 % (42-78); TOTAL CELLS COUNTED 100
[2018-04-04 00:05] LABS: ANISOCYTOSIS 1+; OVALOCYTES SLIGHT; POIKILOCYTOSIS 1+; TARGET CELLS 2+; TEAR DROP CELLS SLIGHT
[2018-04-04 00:06] LABS: PLATELET COMMENT INCREASED; TOXIC VACUOLATION PRESENT
[2018-04-04 00:07] LABS: POLYCHROMASIA SLIGHT
[2018-04-04] MEDS ORDERED: DIPHENHYDRAMINE HCL 50 MG/ML VIAL IV ONE ×3 (01:12→05:14)
[2018-04-04] MEDS ORDERED: HYDROMORPHONE HCL INJ/PF 2 MG/ML AMPULE IV ONE ×3 (01:12→04:44)
[2018-04-04] MEDS ORDERED: NORMAL SALINE 1000 ML 1,000 ML IV ONE ×2 (01:12→03:38)
[2018-04-04] MEDS ORDERED: ONDANSETRON HCL INJ/PF 4 MG/2 ML SDV IV ONE (01:12)
--- NOTE | 2018-04-04 01:13 | ER Document Report ---
ED General - General Chief Complaint: Sickle Cell Crisis Stated Complaint: BODY PAIN Time Seen by Provider: 04/04/18 01:02 Notes: Patient is a 22-year-old female with a history of sickle cell anemia that comes emergency department for chief complaint of 3 days of worsening pain, she states pain is in her arms, legs, lower back, but also since yesterday she has had pains in her upper abdomen with some passing nausea. She is still able to eat, she denies vomiting, she denies fever or chills. She denies shortness of breath or chest pain. 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 Cline but states she is not currently on any medications. Family at bedside. TRAVEL OUTSIDE OF THE [place] IN LAST 30 DAYS: No - Related Data Allergies/Adverse Reactions: morphine Allergy (Verified 04/03/18 22:24) tramadol Adverse Reaction (Verified 10/24/17 15:16) palpitations Past Medical History - General Information source: Patient - Social History Smoking Status: Never Smoker Frequency of alcohol use: None Drug Abuse: None Lives with: Family Family History: Hypertension - Past Medical History Cardiac Medical History: Denies: Hx Atrial Fibrillation, Hx Congestive Heart Failure, Hx DVT, Hx Heart Attack, Hx Hypercholesterolemia, Hx Hypertension, Hx Pulmonary Embolism Pulmonary Medical History: Denies: Hx Asthma, Hx COPD Neurological Medical History: Denies: Hx Seizures Endocrine Medical History: Denies: Hx Diabetes Mellitus Type 1, Hx Diabetes Mellitus Type 2, Hx Hyperthyroidism, Hx Hypothyroidism Renal/ Medical History: Denies: Hx Peritoneal Dialysis GI Medical History: Denies: Hx Cirrhosis, Hx Gastroesophageal Reflux Disease, Hx Hepatitis Musculoskeletal Medical History: Denies Hx Arthritis Psychiatric Medical History: Denies: Hx Depression Traumatic Medical History: Reports: Hx Spleen Laceration/Rupture Infectious Medical History: Denies: Hx Hepatitis 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 - Immunizations Immunizations up to date: Yes Review of Systems - Review of Systems Constitutional: No symptoms reported EENT: No symptoms reported Cardiovascular: No symptoms reported Respiratory: No symptoms reported Gastrointestinal: See HPI Genitourinary: No symptoms reported Female Genitourinary: No symptoms reported Musculoskeletal: See HPI Skin: No symptoms reported Hematologic/Lymphatic: No symptoms reported Neurological/Psychological: No symptoms reported Physical Exam - Vital signs Vitals: Temp Pulse BP Pulse Ox 98.9 F 92 151/94 H 100 04/03/18 22:35 04/03/18 22:35 04/03/18 22:35 04/03/18 22:35 - Notes Notes: GENERAL: Alert, interacts well. No acute distress. HEAD: Normocephalic, atraumatic. EYES: Pupils equal, round, and reactive to light. Extraocular movements intact. ENT: Oral mucosa moist, tongue midline. NECK: Full range of motion. Supple. Trachea midline. LUNGS: Clear to auscultation bilaterally, no wheezes, rales, or rhonchi. No respiratory distress. HEART: Regular rate and rhythm. No murmur ABDOMEN: Generalized upper abdominal tenderness, no guarding, no rebound tenderness. Non-distended. Bowel sounds present in all 4 quadrants. EXTREMITIES: Moves all 4 extremities spontaneously. No edema, normal radial and dorsalis pedis pulses bilaterally. No cyanosis. BACK: no cervical, thoracic, lumbar midline tenderness. No saddle anesthesia, normal distal neurovascular exam. NEUROLOGICAL: Alert and oriented x3. Normal speech. [cranial nerves II through XII grossly intact]. PSYCH: Normal affect, normal mood. SKIN: Warm, dry, normal turgor. No rashes or lesions noted. Course - Re-evaluation Re-evalutation: On reevaluation patient reporting she still has pain but she is improved. CBC shows leukocytosis, minimal anemia, elevated reticulocytes. However CBC leukocytosis is significantly improved from all previous visits. No fever, no tachycardia, patient is actually quite well-appearing. She does have generalized upper abdominal tenderness, ultrasound was performed and is negative. Chemistry unremarkable. Urinalysis unremarkable. After being remedicated patient states her body pain has resolved except for her intermittent abdominal pain. Patient was given Carafate and Pepcid along with her medications, after this her symptoms completely resolved. Suspect gastritis component as well. Does not appear to be bowel ischemia because of patient's benign abdomen and well appearance. Very low suspicion of acute abdomen. No evidence of infection source on my evaluation. Patient is asking to go home, states she feels great. She was provided with medications, she has close follow-up with her limerock tower loader who she has not seen in a little while. Discussed return precautions in detail, patient states understanding and agreement. - Vital Signs Vital signs: Temp Pulse Resp BP Pulse Ox 97.4 F 84 16 119/78 95 04/04/18 07:05 04/04/18 07:05 04/04/18 07:05 04/04/18 07:05 04/04/18 07:05 - Laboratory Result Diagrams: 04/03/18 23:20 04/03/18 23:20 Laboratory results interpreted by me: 04/03/18 04/03/18 04/03/18 23:20 23:20 23:20 WBC 18.0 H Hgb 11.6 L Hct 33.3 L MCV 70 L MCH 24.2 L RDW 17.3 H Plt Count 483 H Band Neutrophils % 1 L Eosinophils % (Manual) 7 H Abs Neuts (Manual) 9.4 H Abs Lymphs (Manual) 6.5 H Absolute Eos (Manual) 1.3 H Retic Count (auto) 3.74 H Absolute Retic 0.179 H Chloride 108 H Carbon Dioxide 21 L AST 37 H Alkaline Phosphatase 155 H Ur Leukocyte Esterase TRACE H Discharge - Discharge Clinical Impression: Sickle cell pain crisis Abdominal pain Qualifiers: Abdominal location: upper abdomen, unspecified Qualified Code(s): R10.10 - Upper abdominal pain, unspecified Condition: Stable Disposition: HOME, SELF-CARE Additional Instructions: Follow-up with your limerock tower loader within the next week for additional evaluation and management. Take medications as prescribed including Carafate and Pepcid, avoid spicy food, caffeine, NSAIDs, smoking, alcohol until symptoms have been resolved for a few days. Return if you worsen including vomiting, fever, severe pain, difficulty breathing, or any other concerning or worsening symptoms. Prescriptions: Famotidine [Pepcid 20 mg Tablet] 20 mg PO BID #20 tablet Oxycodone HCl [Oxycodone HCl 10 MG Tablet] 1 - 2 tab PO Q6H PRN #20 tablet PRN Reason: PAIN Sucralfate [Carafate 1 gm Tablet] 1 gm PO QID #20 tablet Forms: Return to Work
--- NOTE | 2018-04-04 03:41 | RADIOLOGY REPORT (SQ) ---
Ultrasound right upper quadrant on 04/04/2018 at 2:52 AM CLINICAL INDICATION: Epigastric pain COMPARISON: None FINDINGS: Multiple sonographic images are obtained throughout the right upper quadrant, both transverse and sagittal images are obtained. Examination is somewhat limited due to the patient's body habitus. Visualized aorta is unremarkable. Visualized pancreas is unremarkable. Visualized liver is homogeneous without focal liver lesion. Visualized hepatic vasculature is patent and with a normal directional flow. There are no gallstones, gallbladder wall thickening or pericholecystic fluid. The common duct measures 3 mm which is within normal limits mitigating against obstruction of the biliary tree. Right kidney shows no hydronephrosis. IMPRESSION: Essentially unremarkable exam.
[2018-04-04] MEDS ORDERED: FAMOTIDINE 20 MG TABLET PO ONE (04:44)
[2018-04-04] MEDS ORDERED: SUCRALFATE 1 GM TABLET PO ONE (04:44)
[2018-04-04 07:07] VITALS: BP 119/78
== END 2018-04-04 07:07 | disposition home or self-care (01) ==
LOC: ER 22:21
DX: D57.00 Hb-SS disease with crisis, unspecified (principal); R10.10 Upper abdominal pain, unspecified; R10.811 Right upper quadrant abdominal tenderness; R10.812 Left upper quadrant abdominal tenderness; R10.816 Epigastric abdominal tenderness; R11.0 Nausea; M79.603 Pain in arm, unspecified; M79.606 Pain in leg, unspecified; M54.5 Low back pain; D72.829 Elevated white blood cell count, unspecified; Z88.5 Allergy status to narcotic agent; Z90.81 Acquired absence of spleen
CPT/HCPCS: 96376; 99284; 96361; 96374; 96375; 36415; 87086; 83690; 84703; 85025; 85045; 80053; 81001; 76705; J3490 ×2; J1200; J1170; J2405; J7030